=== PATIENT | female | born 1955 | race African-American/Black ===

== ENCOUNTER 2017-11-03 01:01 | Inpatient (IN) | payer MEDICAID ==
[~2017-11-03] VITALS: Ht 157.5 cm; Wt 30.4 kg
[2017-11-03] MEDS ORDERED: ALBUTEROL (0.083%) 2.5MG/3ML NEB HHN STA (02:39)
[2017-11-03] MEDS ORDERED: PREDNISONE 20MG TABLET PO STA (02:39)
[2017-11-03] MEDS ORDERED: IPRATROPIUM BROMIDE (0.02%) 0.5MG/2.5ML NEB HHN STA (02:39)
[2017-11-03 03:26] LABS: BASOPHILS % 0.2 % (0.0-2.0); EOSINOPHILS % 0.4 % (0.0-5.0); HEMATOCRIT. 23.9 % (36.0-48.0); HEMOGLOBIN. 7.8 g/dL (12.0-16.0); LYMPHOCYTES % 10.6 % (20.0-50.0); MEAN CORPUSCULAR HEMOGLOBIN 27.1 pg (28.0-32.0); MEAN CORPUSCULAR VOLUME 83.1 fL (81.0-99.0); MEAN PLATELET VOLUME 8.2 fl (7.4-10.4); NEUTROPHILS % 84.8 % (40.0-76.0); PLATELET 534 x1000/uL (130-400); RED BLOOD CELL COUNT 2.87 mill/uL (4.2-5.4)
[2017-11-03 03:30] LABS: CHLORIDE 99 mEq/L (98-107)
[2017-11-03 04:00] VITALS: BP 136/72
[2017-11-03] MEDS ORDERED: MORPHINE SULFATE 4 MG/ML CPJ (NOT FOR IM USE) IV ONE (04:15)
[2017-11-03] MEDS ORDERED: KETOROLAC 30MG/ML VIAL IV ONE (04:30)
[2017-11-03] MEDS ORDERED: METF1000 PO (05:18)
[2017-11-03] MEDS ORDERED: VENL75CA55 PO (05:18)
[2017-11-03] MEDS ORDERED: QUET300T19 PO (05:18)
[2017-11-03] MEDS ORDERED: GLIP5TAB12 PO (05:18)
[2017-11-03] MEDS ORDERED: NIFE90TA34 PO (05:18)
[2017-11-03] MEDS ORDERED: TRIH5TAB2 PO (05:18)
[2017-11-03] MEDS ORDERED: ATOR40TA70 PO (05:18)
[2017-11-03] MEDS ORDERED: LISI40TA4 PO (05:18)
[2017-11-03] MEDS ORDERED: FLUP10TA2 PO (05:18)
[2017-11-03] MEDS ORDERED: VENL150C2 PO (05:18)
[2017-11-03] MEDS ORDERED: DOCU100T PO (05:18)
[2017-11-03 05:56] VITALS: BP 136/72
[2017-11-03] MEDS ORDERED: DIPHENHYDRAMINE 50MG/ML VIAL IV PRN (07:45)
[2017-11-03] MEDS ORDERED: ACETAMINOPHEN 325MG TABLET PO PRN (07:45)
[2017-11-03] MEDS ORDERED: CLONIDINE 0.1MG TABLET PO PRN (07:45)
[2017-11-03] MEDS ORDERED: MAGNESIUM/ALUMINUM HYDROXIDE/SIMETHICONE 30ML UDC PO PRN (07:45)
[2017-11-03] MEDS ORDERED: KETOROLAC 30MG/ML VIAL IV PRN (07:45)
[2017-11-03] MEDS ORDERED: DOCUSATE SODIUM 100MG CAPSULE PO PRN (07:45)
[2017-11-03] MEDS ORDERED: ZOLPIDEM TARTRATE 5MG TABLET PO PRN (07:45)
[2017-11-03] MEDS ORDERED: ONDANSETRON HCL 4MG/2ML VIAL IV PRN (07:45)
[2017-11-03] MEDS ORDERED: NA PHOS,M-B/NA PHOS,DI-BA ENEMA 118ML PR PRN (07:45)
[2017-11-03] MEDS ORDERED: NITROGLYCERIN 0.4MG TABLET SL SL PRN (07:45)
[2017-11-03] MEDS ORDERED: LORAZEPAM 0.5MG TABLET PO PRN (07:45)
[2017-11-03] MEDS ORDERED: IPRATROPIUM/ALBUTEROL 0.5-3(2.5)MG/3ML NEB INH PRN (07:45)
[2017-11-03] MEDS ORDERED: GUAIFENESIN 200MG/10ML SUGAR FREE UDC PO PRN (07:45)
[2017-11-03] MEDS ORDERED: DEXTROSE 50% WATER 50ML SYRINGE IV PRN (08:15)
[2017-11-03 08:21] LABS: TOTAL IRON BINDING CAPACITY 153 ug/dL (250-450)
[2017-11-03] MEDS: FAMOTIDINE 20MG TABLET PO SCH (09:12)
[2017-11-03] MEDS: BLOOD SUGAR DIAGNOSTIC STRIP TEST SCH ×4 (09:12→21:35)
[2017-11-03] MEDS: GUAIFENESIN 600MG ER TABLET PO SCH ×3 (09:12→21:49)
[2017-11-03] MEDS: INSULIN LISPRO 100 UNITS/ML SUBCUT SCH ×4 (09:13→21:42)
[2017-11-03] MEDS: ENOXAPARIN 30MG/0.3ML SYR SUBCUT SCH (09:18)
[2017-11-03] MEDS ORDERED: LEVOFLOXACIN 750MG PREMIX 150 ML IV SCH (09:30)
[2017-11-03 09:55] LABS: FOLIC ACID (FOLATE) SERUM 17.6 ng/mL (>5.38)
[2017-11-03] MEDS ORDERED: QUETIAPINE FUMARATE 50MG TABLET PO SCH ×2 (11:00→21:00)
[2017-11-03] MEDS: INSULIN GLARGINE UD 100 UNITS/ML SYR SUBCUT SCH (11:55)
[2017-11-03] MEDS ORDERED: IOHEXOL-300 100 ML BOTTLE ONE (12:00)
[2017-11-03] MEDS ORDERED: BLOOD SUGAR DIAGNOSTIC STRIP TEST SCH (12:20)
[2017-11-03 12:29] VITALS: BP 144/79
[2017-11-03] MEDS ORDERED: INSULIN LISPRO 100 UNITS/ML SUBCUT SCH (12:50)
[2017-11-03] MEDS: VENLAFAXINE HCL 37.5MG SR CAPSULE 24HR PO SCH (13:13)
[2017-11-03 15:49] VITALS: BP 153/82
[2017-11-03] MEDS: BUDESONIDE 0.5MG/2ML NEB HHN SCH ×2 (16:31→19:49)
[2017-11-03] MEDS: NICOTINE 14MG PATCH TD SCH (17:54)
[2017-11-03] MEDS: IPRATROPIUM/ALBUTEROL 0.5-3(2.5)MG/3ML NEB HHN SCH (19:50)
[2017-11-03 20:00] VITALS: BP 165/86
[2017-11-03] MEDS ORDERED: ACETYLCYSTEINE 100MG/ML 10% VIAL 4ML INH SCH (22:00)
[2017-11-04] VITALS: BP 133/61
[2017-11-04] MEDS: IPRATROPIUM/ALBUTEROL 0.5-3(2.5)MG/3ML NEB HHN SCH ×2 (00:15→08:31)
[2017-11-04 04:00] VITALS: BP 162/97
[2017-11-04] MEDS: BLOOD SUGAR DIAGNOSTIC STRIP TEST SCH (06:57)
[2017-11-04 07:52] VITALS: BP 147/90
[2017-11-04] MEDS: INSULIN LISPRO 100 UNITS/ML SUBCUT SCH (08:09)
[2017-11-04] MEDS: FAMOTIDINE 20MG TABLET PO SCH (08:10)
[2017-11-04] MEDS: NICOTINE 14MG PATCH TD SCH (08:11)
[2017-11-04] MEDS: VENLAFAXINE HCL 37.5MG SR CAPSULE 24HR PO SCH (08:11)
[2017-11-04] MEDS: ENOXAPARIN 30MG/0.3ML SYR SUBCUT SCH (08:12)
[2017-11-04] MEDS: BUDESONIDE 0.5MG/2ML NEB HHN SCH (08:30)
[2017-11-04] MEDS ORDERED: ATORVASTATIN CALCIUM 40MG TABLET PO SCH ×2 (09:00→21:00)
[2017-11-04] MEDS: INSULIN GLARGINE UD 100 UNITS/ML SYR SUBCUT SCH (10:05)
[2017-11-04 11:10] VITALS: BP 113/58
[2017-11-04 12:11] VITALS: BP 157/84
[2017-11-05] MEDS ORDERED: LEVOFLOXACIN 500MG PREMIX 100 ML IV SCH (09:00)
== END 2017-11-04 12:00 | disposition home or self-care (01) | DRG 720 ==
LOC: ER 01:01 → 6WST 03:09 → ENRESERV 03:38
PROVIDERS: ADMIT Internal Medicine; ATTEND Internal Medicine
DX: A41.9 Sepsis, unspecified organism (principal); J96.00 Acute respiratory failure, unspecified whether with hypoxia or hypercapnia; E43 Unspecified severe protein-calorie malnutrition; J18.9 Pneumonia, unspecified organism; E11.22 Type 2 diabetes mellitus with diabetic chronic kidney disease; D64.9 Anemia, unspecified; F31.9 Bipolar disorder, unspecified; F20.9 Schizophrenia, unspecified; N18.9 Chronic kidney disease, unspecified; R91.8 Other nonspecific abnormal finding of lung field; I12.9 Hypertensive chronic kidney disease with stage 1 through stage 4 chronic kidney disease, or unspecified chronic kidney disease; E78.00 Pure hypercholesterolemia, unspecified; F17.210 Nicotine dependence, cigarettes, uncomplicated; Z79.899 Other long term (current) drug therapy; Z98.51 Tubal ligation status; Z71.6 Tobacco abuse counseling; Z68.1 Body mass index [BMI] 19.9 or less, adult
CPT/HCPCS: 36415; 71045; 71260; 80053; 82607; 82746; 82962; 83036; 83540; 83550; 83605; 85025; 87040; 87070; 93005; 93970; 99285; J1650; J1815; J1885; J1956; J2270; J7040; J7512; J7608; J7611; J7620; J7626; Q9967

== ENCOUNTER 2017-12-23 19:28 | Inpatient (IN) | payer MEDICAID ==
[~2017-12-23] VITALS: Ht 175.3 cm; Wt 93.9 kg
[~2017-12-23 19:28] MED LIST: ATOR40TA70 PO; DOCU100T PO; FLUP10TA2 PO; GLIP5TAB12 PO; LISI40TA4 PO; METF1000 PO; NIFE90TA34 PO; QUET300T19 PO; TRIH5TAB2 PO; VENL150C2 PO; VENL75CA55 PO
[2017-12-23] MEDS ORDERED: VANCOMYCIN 1 G PREMIX 200 ML IV STA (19:59)
[2017-12-23] MEDS ORDERED: CEFEPIME 1,000 MG in DEXTROSE 5% WATER 50 ML IV STA (19:59)
[2017-12-23] MEDS ORDERED: SODIUM CHLORIDE 0.9% 1000ML BAG (SEPSIS BOLUS) IV ONE (20:45)
[2017-12-23 20:56] LABS: HEMATOCRIT. 32.8 % (36.0-48.0); HEMOGLOBIN. 10.2 g/dL (12.0-16.0); MEAN CORPUSCULAR HEMOGLOBIN 26.9 pg (28.0-32.0); MEAN CORPUSCULAR VOLUME 86.7 fL (81.0-99.0); MEAN PLATELET VOLUME 9.2 fl (7.4-10.4); PLATELET 376 x1000/uL (130-400); RED BLOOD CELL COUNT 3.79 mill/uL (4.2-5.4); RED CELL DISTRIBUTION WIDTH 19.8 % (11.6-14.6)
[2017-12-23 21:01] LABS: CHLORIDE 94 mEq/L (98-107)
[2017-12-23 21:03] LABS: PROTHROMBIN TIME 10.1 sec (9.1-11.1)
[2017-12-23 21:19] LABS: BG BASE EXCESS -8.2 mmol/L (-2.0-2.0); BG BILEVEL POS AIRWAY PRESSURE 15/5; BG CARBOXYHEMOGLOBIN 1.3 % (0.5-1.5); BG DEOXYHEMOGLOBIN 6.7 % (0.0-5.0); BG FRACTION INSPIRED OXYGEN 100; BG HCO3 ACT 17.9 mmol/L (22.0-26.0); BG METHEMOGLOBIN 0.3 % (0.0-1.5); BG OXYGEN SATURATION 93.2 % (92.0-98.5); BG OXYHEMOGLOBIN 91.7 % (94.0-97.0); BG PCO2 39.2 mmHg (35.0-45.0); BG PH 7.278 (7.350-7.450); BG PO2 78.9 mmHg (75.0-100.0); BG SAMPLE SITE RIGHT BRACHIAL; BG TOTAL HEMOGLOBIN 10.6 g/dL (12.0-18.0); BG VENT MODE MASK - BIPAP; BG VENT RATE 16 set
[2017-12-23 21:31] LABS: PLATELET ESTIMATE NORMAL
[2017-12-23] MEDS ORDERED: DIPHENHYDRAMINE 50MG/ML VIAL IV ONE (22:15)
[2017-12-23] MEDS ORDERED: METOCLOPRAMIDE HCL 10MG/2ML VIAL IV ONE (22:15)
[2017-12-23] MEDS ORDERED: KETOROLAC 15MG/ML VIAL IV ONE (22:15)
[2017-12-24] VITALS (64 sets, daily range): BP systolic 81–126; BP diastolic 48–84
[2017-12-24] MEDS ORDERED: DEXTROSE 50% WATER 50ML SYRINGE IV PRN ×2
[2017-12-24 01:21] LABS: CLARITY URINE CLEAR (CLEAR); COLOR URINE YELLOW (YELLOW); KETONES URINE NEGATIVE (NEGATIVE); LEUKOCYTE ESTERASE URINE NEGATIVE (NEGATIVE); NITRITE URINE NEGATIVE (NEGATIVE); OCCULT BLOOD URINE NEGATIVE (NEGATIVE); PROTEIN URINE 1+ (NEGATIVE); SPECIFIC GRAVITY URINE 1.016 (1.005-1.030); UROBILINOGEN URINE 0.2 E.U./dL (0.2-1.0)
[2017-12-24] MEDS ORDERED: INSULIN REGULAR (DRIP) 100 UNITS in SODIUM CHLORIDE 0.9% 100 ML IV SCH (02:00)
[2017-12-24] MEDS ORDERED: ACETAMINOPHEN 650MG SUPP PR PRN (08:45)
[2017-12-24] MEDS ORDERED: SODIUM CHLORIDE 0.9% 250 ML IV ONE (09:08)
[2017-12-24] MEDS ORDERED: SODIUM CHLORIDE 0.9% 1,000 ML IV SCH (09:15)
[2017-12-24 09:16] LABS: BG BASE EXCESS -9.8 mmol/L (-2.0-2.0); BG BILEVEL POS AIRWAY PRESSURE 15/5; BG CARBOXYHEMOGLOBIN 0.3 % (0.5-1.5); BG DEOXYHEMOGLOBIN 5.4 % (0.0-5.0); BG FRACTION INSPIRED OXYGEN 100; BG HCO3 ACT 16.8 mmol/L (22.0-26.0); BG METHEMOGLOBIN 0.3 % (0.0-1.5); BG OXYGEN SATURATION 94.6 % (92.0-98.5); BG PCO2 39.2 mmHg (35.0-45.0); BG PH 7.249 (7.350-7.450); BG SAMPLE SITE RIGHT BRACHIAL; BG TOTAL HEMOGLOBIN 10.6 g/dL (12.0-18.0); BG VENT MODE MASK - BIPAP
[2017-12-24] MEDS: BLOOD SUGAR DIAGNOSTIC STRIP TEST SCH ×7 (09:46→18:21)
[2017-12-24 09:57] LABS: BG BASE EXCESS -10.9 mmol/L (-2.0-2.0); BG CARBOXYHEMOGLOBIN 0.1 % (0.5-1.5); BG DEOXYHEMOGLOBIN 6.7 % (0.0-5.0); BG HCO3 ACT 16.3 mmol/L (22.0-26.0); BG METHEMOGLOBIN 0.2 % (0.0-1.5); BG OXYGEN SATURATION 93.3 % (92.0-98.5); BG PCO2 41.5 mmHg (35.0-45.0); BG PH 7.212 (7.350-7.450); BG PO2 82.4 mmHg (75.0-100.0); BG SAMPLE SITE RIGHT BRACHIAL; BG TIDAL VOLUME(mL) 500 mL; BG TOTAL HEMOGLOBIN 10.6 g/dL (12.0-18.0); BG VENT MODE VENT - A/C; BG VENT RATE 16 set
[2017-12-24] MEDS: ONDANSETRON HCL 4MG/2ML INJ IV PRN (10:11)
[2017-12-24 10:23] LABS: HEMATOCRIT 30.4 % (36.0-48.0); HEMOGLOBIN 9.4 g/dL (12.0-16.0); MEAN CORPUSCULAR HEMOGLOBIN 26.4 pg (28.0-32.0); MEAN CORPUSCULAR VOLUME 85.1 fL (81.0-99.0); PLATELET 332 x1000/uL (130-400); RED BLOOD CELL COUNT 3.57 mill/uL (4.2-5.4); RED CELL DISTRIBUTION WIDTH 19.7 % (11.6-14.6)
[2017-12-24 10:33] LABS: CHLORIDE 108 mEq/L (98-107)
[2017-12-24 10:42] LABS: BETA HYDROXYBUTYRATE 0.1 mMol/L (0.0-0.3)
[2017-12-24] MEDS: PROPOFOL 10MG/ML 100ML 100 ML IV PRN ×2 (11:41→14:53)
[2017-12-24] MEDS: NOREPINEPHRINE 16 MG in DEXT 5% WATER 234 ML IV PRN (11:42)
[2017-12-24] MEDS: CEFEPIME 2,000 MG in DEXT 5% WATER 100 ML IV SCH (12:25)
[2017-12-24] MEDS: IPRATROPIUM/ALBUTEROL 0.5-3(2.5)MG/3ML NEB HHN SCH ×4 (12:44→23:57)
[2017-12-24] MEDS: ACETYLCYSTEINE 100MG/ML 10% VIAL 4ML INH SCH ×2 (12:45→23:57)
[2017-12-24] MEDS ORDERED: FLUCONAZOLE 400MG/200ML BAG 200 ML IV NR (13:00)
[2017-12-24 13:09] LABS: PHOSPHORUS 3.9 mg/dL (2.5-4.9)
[2017-12-24 13:11] LABS: *AMPHETAMINES SCREEN URINE NEGATIVE (NEGATIVE); *BARBITURATES SCREEN URINE NEGATIVE (NEGATIVE); *BENZODIAZEPINES SCREEN URINE NEGATIVE (NEGATIVE); *COCAINE SCREEN URINE NEGATIVE (NEGATIVE)
[2017-12-24 13:12] LABS: CANNABINOID URINE SCREEN NEGATIVE (NEGATIVE); METHADONE URINE SCREEN NEGATIVE (NEGATIVE); PHENCYCLIDINE URINE SCREEN NEGATIVE (NEGATIVE)
[2017-12-24 13:14] LABS: OPIATES URINE SCREEN NEGATIVE (NEGATIVE)
[2017-12-24] MEDS ORDERED: MAGNESIUM SULFATE 3 GM in DEXT 5% WATER 96 ML IV NR ×2 (14:30→17:00)
[2017-12-24] MEDS: METRONIDAZOLE 500 MG PREMIX 100 ML IV SCH ×2 (14:30→21:20)
[2017-12-24] MEDS ORDERED: ETOMIDATE 2MG/ML 10ML VIAL IV ONE (14:32)
[2017-12-24] MEDS ORDERED: VECURONIUM BROMIDE 10 MG/VIAL IV ONE (14:32)
[2017-12-24] MEDS ORDERED: INSULIN REGULAR (DRIP) 100 UNITS in SODIUM CHLORIDE 0.9% 99 ML IV PRN (16:15)
[2017-12-24] MEDS: DEXT 5%/0.45% NACL 1000ML 1,000 ML IV SCH (16:55)
[2017-12-24] MEDS: DOXYCYCLINE 100 MG in DEXT 5% WATER 100 ML IV SCH (17:10)
[2017-12-24] MEDS: INSULIN REGULAR (DRIP) 100 UNITS in SODIUM CHLORIDE 0.9% 99 ML IV SCH (17:13)
[2017-12-24] MEDS ORDERED: VORICONAZOLE 50MG TABLET PO NR (18:00)
[2017-12-24] MEDS ORDERED: VANCOMYCIN 1250MG in DEXTROSE 5% WATER 250ML IV NR (18:30)
[2017-12-24 20:20] LABS: CHLORIDE 110 mEq/L (98-107)
[2017-12-24 20:26] LABS: PHOSPHORUS 2.7 mg/dL (2.5-4.9)
[2017-12-24] MEDS ORDERED: VENLAFAXINE HCL 100MG TABLET PO SCH (21:00)
[2017-12-24] MEDS ORDERED: FLUPHENAZINE HCL 5 MG TABLET NG SCH (21:00)
[2017-12-24] MEDS: QUETIAPINE FUMARATE 100MG TABLET PO SCH (21:19)
[2017-12-24] MEDS: VENLAFAXINE HCL 50MG TABLET PO SCH (21:57)
[2017-12-24] MEDS: TRIHEXYPHENIDYL HCL 5 MG TABLET NG SCH (22:59)
[2017-12-25] VITALS (105 sets, daily range): BP systolic 65–125; BP diastolic 39–78
[2017-12-25 02:06] LABS: CHLORIDE 108 mEq/L (98-107)
[2017-12-25 02:13] LABS: PHOSPHORUS 2.6 mg/dL (2.5-4.9)
[2017-12-25] MEDS: BLOOD SUGAR DIAGNOSTIC STRIP TEST SCH ×10 (02:59→18:00)
[2017-12-25] MEDS: IPRATROPIUM/ALBUTEROL 0.5-3(2.5)MG/3ML NEB HHN SCH ×5 (04:19→20:17)
[2017-12-25] MEDS: DOXYCYCLINE 100 MG in DEXT 5% WATER 100 ML IV SCH ×2 (05:31→18:06)
[2017-12-25] MEDS: DEXT 5%/0.45% NACL 1000ML 1,000 ML IV SCH (05:32)
[2017-12-25] MEDS: PROPOFOL 10MG/ML 100ML 100 ML IV PRN ×5 (05:32→21:54)
[2017-12-25] MEDS: METRONIDAZOLE 500 MG PREMIX 100 ML IV SCH ×3 (05:41→21:40)
[2017-12-25 06:03] LABS: BASOPHILS % 0.3 % (0.0-2.0); EOSINOPHILS % 0.2 % (0.0-5.0); HEMATOCRIT. 25.8 % (36.0-48.0); HEMOGLOBIN. 8.2 g/dL (12.0-16.0); LYMPHOCYTES % 7.8 % (20.0-50.0); MEAN CORPUSCULAR HEMOGLOBIN 26.8 pg (28.0-32.0); MEAN CORPUSCULAR VOLUME 84.1 fL (81.0-99.0); MEAN PLATELET VOLUME 8.4 fl (7.4-10.4); MONOCYTES % 2.9 % (2.0-8.0); NEUTROPHILS % 88.8 % (40.0-76.0); PLATELET 277 x1000/uL (130-400); RED BLOOD CELL COUNT 3.06 mill/uL (4.2-5.4); RED CELL DISTRIBUTION WIDTH 19.6 % (11.6-14.6)
[2017-12-25 06:30] LABS: CHLORIDE 110 mEq/L (98-107)
[2017-12-25 06:50] LABS: PHOSPHORUS 2.8 mg/dL (2.5-4.9)
[2017-12-25 06:51] LABS: LDL CHOLESTEROL 54 mg/dL (5-100)
[2017-12-25 06:53] LABS: HDL CHOLESTEROL 34 mg/dL (40-59)
[2017-12-25 06:55] LABS: CREATINE KINASE MB FRACTION < 1.0 ng/mL (0.5-3.6)
[2017-12-25 06:56] LABS: CREATINE KINASE 22 IU/L (26-192); T4 FREE 1.13 ng/dL (0.76-1.46)
[2017-12-25 08:52] LABS: BG BASE EXCESS -9.7 mmol/L (-2.0-2.0); BG CARBOXYHEMOGLOBIN 0.7 % (0.5-1.5); BG DEOXYHEMOGLOBIN 10.5 % (0.0-5.0); BG FRACTION INSPIRED OXYGEN 80; BG METHEMOGLOBIN 0.4 % (0.0-1.5); BG OXYGEN SATURATION 89.4 % (92.0-98.5); BG OXYHEMOGLOBIN 88.4 % (94.0-97.0); BG PCO2 34.5 mmHg (35.0-45.0); BG PH 7.285 (7.350-7.450); BG PO2 63.1 mmHg (75.0-100.0); BG SAMPLE SITE RIGHT RADIAL; BG TIDAL VOLUME(mL) 500 mL; BG TOTAL HEMOGLOBIN 9.4 g/dL (12.0-18.0); BG VENT MODE VENT - A/C; BG VENT RATE 20 set
[2017-12-25] MEDS: PANTOPRAZOLE SODIUM 40 MG/VIAL IV SCH (09:10)
[2017-12-25] MEDS: VORICONAZOLE 200MG TABLET PO SCH ×2 (09:11→21:40)
[2017-12-25] MEDS: VENLAFAXINE HCL 50MG TABLET PO SCH ×2 (09:11→18:05)
[2017-12-25] MEDS: TRIHEXYPHENIDYL HCL 5 MG TABLET NG SCH ×2 (09:11→21:40)
[2017-12-25] MEDS ORDERED: POTASSIUM CHLORIDE 20MEQ/PACKET PO SCH (09:45)
[2017-12-25] MEDS: ACETAMINOPHEN 325MG TABLET PO PRN (09:54)
[2017-12-25] MEDS ORDERED: FENTANYL CITRATE/PF 1,000 MCG in SODIUM CHLORIDE 0.9% 100 ML IV PRN (10:00)
[2017-12-25] MEDS ORDERED: FENTANYL CITRATE/PF 1,000 MCG in SODIUM CHLORIDE 0.9% 80 ML IV PRN (10:00)
[2017-12-25] MEDS: FENTANYL CITRATE/PF 1,000 MCG in SODIUM CHLORIDE 0.9% 100 ML IV PRN ×2 (10:23→17:47)
[2017-12-25] MEDS: PHENYLEPHRINE 40 MG in DEXT 5% WATER 246 ML IV PRN ×4 (11:12→23:21)
[2017-12-25] MEDS ORDERED: DEXT IV SCH (11:15)
[2017-12-25] MEDS ORDERED: NACL IV SCH (11:15)
[2017-12-25] MEDS ORDERED: SODIUM BICARBONATE IV SCH (11:15)
[2017-12-25] MEDS: FLUPHENAZINE HCL 10 MG TABLET NG SCH ×2 (11:51→21:40)
[2017-12-25] MEDS: CEFEPIME 2,000 MG in DEXT 5% WATER 100 ML IV SCH (11:51)
[2017-12-25] MEDS ORDERED: KCL 20MEQ/100ML PREMIX 100 ML IV NR (13:00)
[2017-12-25] MEDS ORDERED: FLUCONAZOLE 200 MG/100ML BAG 100 ML IV SCH (13:00)
[2017-12-25] MEDS: SODIUM BICARBONATE 50 MEQ in DEXT 5%/0.2% NACL 1,000 ML IV SCH (13:17)
[2017-12-25 13:43] LABS: CHLORIDE 113 mEq/L (98-107)
[2017-12-25 13:50] LABS: PHOSPHORUS 3.5 mg/dL (2.5-4.9)
[2017-12-25] MEDS: VANCOMYCIN 1 G PREMIX 200 ML IV SCH (16:11)
[2017-12-25] MEDS ORDERED: VANCOMYCIN 1250MG in DEXTROSE 5% WATER 250ML IV SCH (18:00)
[2017-12-25] MEDS: QUETIAPINE FUMARATE 100MG TABLET PO SCH (21:40)
[2017-12-26] VITALS (60 sets, daily range): BP systolic 66–181; BP diastolic 41–101
[2017-12-26] MEDS: ACETYLCYSTEINE 100MG/ML 10% VIAL 4ML INH SCH ×4 (00:02→23:41)
[2017-12-26] MEDS: IPRATROPIUM/ALBUTEROL 0.5-3(2.5)MG/3ML NEB HHN SCH ×7 (00:02→23:41)
[2017-12-26] MEDS: BLOOD SUGAR DIAGNOSTIC STRIP TEST SCH ×10 (00:29→18:02)
[2017-12-26] MEDS: PHENYLEPHRINE 40 MG in DEXT 5% WATER 246 ML IV PRN ×2 (03:05→21:25)
[2017-12-26] MEDS: FENTANYL CITRATE/PF 1,000 MCG in SODIUM CHLORIDE 0.9% 80 ML IV PRN (04:14)
[2017-12-26] MEDS: DOXYCYCLINE 100 MG in DEXT 5% WATER 100 ML IV SCH ×2 (05:17→19:14)
[2017-12-26] MEDS: NOREPINEPHRINE 16 MG in DEXT 5% WATER 234 ML IV PRN ×2 (05:29→07:00)
[2017-12-26 06:24] LABS: BASOPHILS % 0.3 % (0.0-2.0); EOSINOPHILS % 1.2 % (0.0-5.0); HEMATOCRIT. 28.5 % (36.0-48.0); HEMOGLOBIN. 8.9 g/dL (12.0-16.0); MEAN CORPUSCULAR HEMOGLOBIN 26.6 pg (28.0-32.0); MEAN CORPUSCULAR VOLUME 85.3 fL (81.0-99.0); MONOCYTES % 3.8 % (2.0-8.0); NEUTROPHILS % 83.7 % (40.0-76.0); PLATELET 286 x1000/uL (130-400); RED BLOOD CELL COUNT 3.34 mill/uL (4.2-5.4); RED CELL DISTRIBUTION WIDTH 20.3 % (11.6-14.6)
[2017-12-26 06:45] LABS: CHLORIDE 111 mEq/L (98-107)
[2017-12-26 06:53] LABS: PHOSPHORUS 3.3 mg/dL (2.5-4.9)
[2017-12-26] MEDS: SODIUM BICARBONATE 50 MEQ in DEXT 5%/0.2% NACL 1,000 ML IV SCH (06:53)
[2017-12-26] MEDS: METRONIDAZOLE 500 MG PREMIX 100 ML IV SCH ×3 (06:53→21:59)
[2017-12-26 08:15] LABS: HIV SCREEN 4G Non Reactive (Non Reactive)
[2017-12-26 08:28] LABS: BG BASE EXCESS -10.8 mmol/L (-2.0-2.0); BG CARBOXYHEMOGLOBIN 0.2 % (0.5-1.5); BG DEOXYHEMOGLOBIN 3.8 % (0.0-5.0); BG FRACTION INSPIRED OXYGEN 90; BG HCO3 ACT 16.4 mmol/L (22.0-26.0); BG METHEMOGLOBIN 0.4 % (0.0-1.5); BG OXYGEN SATURATION 96.2 % (92.0-98.5); BG OXYHEMOGLOBIN 95.6 % (94.0-97.0); BG PCO2 42.1 mmHg (35.0-45.0); BG PH 7.209 (7.350-7.450); BG PO2 95.5 mmHg (75.0-100.0); BG SAMPLE SITE RIGHT RADIAL; BG TIDAL VOLUME(mL) 500 mL; BG TOTAL HEMOGLOBIN 10.4 g/dL (12.0-18.0); BG VENT MODE VENT - A/C; BG VENT RATE 24 set
[2017-12-26] MEDS ORDERED: SODIUM BICARBONATE 5MEQ SYR 100 MEQ in DEXTROSE 5% WATER 1,000 ML IV SCH (09:30)
[2017-12-26] MEDS: VORICONAZOLE 200MG TABLET PO SCH ×2 (09:49→20:56)
[2017-12-26] MEDS: TRIHEXYPHENIDYL HCL 5 MG TABLET NG SCH ×2 (09:49→20:54)
[2017-12-26] MEDS: PANTOPRAZOLE SODIUM 40 MG/VIAL IV SCH (09:49)
[2017-12-26] MEDS: VENLAFAXINE HCL 50MG TABLET PO SCH ×2 (09:49→19:14)
[2017-12-26] MEDS: VANCOMYCIN 1 G PREMIX 200 ML IV SCH (09:49)
[2017-12-26] MEDS: FLUPHENAZINE HCL 10 MG TABLET NG SCH ×2 (09:49→20:56)
[2017-12-26] MEDS: SODIUM BICARBONATE 100 MEQ in DEXTROSE 5% WATER 1,000 ML IV SCH (11:44)
[2017-12-26] MEDS: CEFEPIME 2,000 MG in DEXT 5% WATER 100 ML IV SCH (12:53)
[2017-12-26] MEDS: QUETIAPINE FUMARATE 100MG TABLET PO SCH (20:56)
[2017-12-27] VITALS (83 sets, daily range): BP systolic 68–134; BP diastolic 35–90
[2017-12-27] MEDS: BLOOD SUGAR DIAGNOSTIC STRIP TEST SCH ×10 (00:31→18:27)
[2017-12-27] MEDS: INSULIN REGULAR (DRIP) 100 UNITS in SODIUM CHLORIDE 0.9% 99 ML IV SCH (01:08)
[2017-12-27] MEDS: PHENYLEPHRINE 40 MG in DEXT 5% WATER 246 ML IV PRN ×4 (02:12→20:10)
[2017-12-27] MEDS: SODIUM BICARBONATE 100 MEQ in DEXTROSE 5% WATER 1,000 ML IV SCH (03:17)
[2017-12-27] MEDS: IPRATROPIUM/ALBUTEROL 0.5-3(2.5)MG/3ML NEB HHN SCH ×5 (03:42→21:14)
[2017-12-27] MEDS: VANCOMYCIN 1 G PREMIX 200 ML IV SCH (04:56)
[2017-12-27] MEDS: DOXYCYCLINE 100 MG in DEXT 5% WATER 100 ML IV SCH ×2 (05:38→18:35)
[2017-12-27] MEDS: METRONIDAZOLE 500 MG PREMIX 100 ML IV SCH ×3 (05:47→21:04)
[2017-12-27 06:09] LABS: BASOPHILS % 0.4 % (0.0-2.0); EOSINOPHILS % 0.7 % (0.0-5.0); HEMATOCRIT. 23.9 % (36.0-48.0); HEMOGLOBIN. 7.5 g/dL (12.0-16.0); LYMPHOCYTES % 8.4 % (20.0-50.0); MEAN CORPUSCULAR HEMOGLOBIN 26.7 pg (28.0-32.0); MEAN CORPUSCULAR VOLUME 84.9 fL (81.0-99.0); NEUTROPHILS % 87.5 % (40.0-76.0); PLATELET 232 x1000/uL (130-400); RED BLOOD CELL COUNT 2.82 mill/uL (4.2-5.4); RED CELL DISTRIBUTION WIDTH 19.9 % (11.6-14.6)
[2017-12-27 06:16] LABS: CHLORIDE 114 mEq/L (98-107)
[2017-12-27 06:22] LABS: PHOSPHORUS 3.9 mg/dL (2.5-4.9)
[2017-12-27 07:37] LABS: BG BASE EXCESS -8.8 mmol/L (-2.0-2.0); BG DEOXYHEMOGLOBIN 4.6 % (0.0-5.0); BG OXYGEN SATURATION 95.4 % (92.0-98.5); BG OXYHEMOGLOBIN 94.4 % (94.0-97.0); BG PCO2 36.1 mmHg (35.0-45.0); BG PO2 82.9 mmHg (75.0-100.0); BG SAMPLE SITE RIGHT RADIAL; BG TIDAL VOLUME(mL) 500 mL; BG TOTAL HEMOGLOBIN 8.8 g/dL (12.0-18.0); BG VENT MODE VENT - A/C; BG VENT RATE 28 set
[2017-12-27] MEDS: PANTOPRAZOLE SODIUM 40 MG/VIAL IV SCH (08:56)
[2017-12-27] MEDS: VENLAFAXINE HCL 50MG TABLET PO SCH ×2 (08:56→18:35)
[2017-12-27] MEDS: TRIHEXYPHENIDYL HCL 5 MG TABLET NG SCH ×2 (08:56→20:56)
[2017-12-27] MEDS: VORICONAZOLE 200MG TABLET PO SCH ×2 (08:56→20:57)
[2017-12-27] MEDS: FLUPHENAZINE HCL 10 MG TABLET NG SCH ×2 (08:57→20:56)
[2017-12-27] MEDS: ACETYLCYSTEINE 100MG/ML 10% VIAL 4ML INH SCH (09:19)
[2017-12-27] MEDS ORDERED: ALBUMIN HUMAN 25GM/100ML (25%) IV NR (11:00)
[2017-12-27] MEDS ORDERED: MAGNESIUM 2 G PREMIX 50 ML IV ONE (11:00)
[2017-12-27] MEDS: PROPOFOL 10MG/ML 100ML 100 ML IV PRN ×3 (11:43→23:26)
[2017-12-27] MEDS: CEFEPIME 2,000 MG in DEXT 5% WATER 100 ML IV SCH (12:59)
[2017-12-27] MEDS ORDERED: MAGNESIUM SULFATE 2 GM in DEXTROSE 5% WATER 50 ML IV NR (13:00)
[2017-12-27] MEDS ORDERED: EPINEPHRINE 0.1MG/ML (1:10,000) 10ML SYR ONE (13:17)
[2017-12-27] MEDS: FENTANYL CITRATE/PF 1,000 MCG in SODIUM CHLORIDE 0.9% 80 ML IV PRN (14:52)
[2017-12-27] MEDS: SODIUM BICARBONATE 150 MEQ in DEXTROSE 5% WATER 1,000 ML IV SCH (14:53)
[2017-12-27 17:07] LABS: QFT MITOGEN VALUE 0.32 IU/mL (.); QFT TB GOLD PLUS Indeterminate (Negative); QFT TB1 AG VALUE 0.01 IU/mL (.)
[2017-12-27] MEDS: NOREPINEPHRINE 16 MG in DEXT 5% WATER 234 ML IV PRN (20:11)
[2017-12-27] MEDS: QUETIAPINE FUMARATE 100MG TABLET PO SCH (20:58)
[2017-12-28] VITALS (80 sets, daily range): BP systolic 74–139; BP diastolic 39–80
[2017-12-28] MEDS: BLOOD SUGAR DIAGNOSTIC STRIP TEST SCH ×10 (00:16→18:01)
[2017-12-28] MEDS: PHENYLEPHRINE 40 MG in DEXT 5% WATER 246 ML IV PRN ×5 (00:23→20:32)
[2017-12-28] MEDS: IPRATROPIUM/ALBUTEROL 0.5-3(2.5)MG/3ML NEB HHN SCH ×6 (00:54→20:30)
[2017-12-28] MEDS: ACETYLCYSTEINE 100MG/ML 10% VIAL 4ML INH SCH ×3 (00:55→16:20)
[2017-12-28] MEDS: FENTANYL CITRATE/PF 1,000 MCG in SODIUM CHLORIDE 0.9% 80 ML IV PRN ×2 (02:37→18:23)
[2017-12-28] MEDS: PROPOFOL 10MG/ML 100ML 100 ML IV PRN ×2 (03:23→10:24)
[2017-12-28] MEDS: SODIUM BICARBONATE 150 MEQ in DEXTROSE 5% WATER 1,000 ML IV SCH ×2 (05:05→20:31)
[2017-12-28] MEDS: METRONIDAZOLE 500 MG PREMIX 100 ML IV SCH ×3 (05:06→22:00)
[2017-12-28] MEDS: DOXYCYCLINE 100 MG in DEXT 5% WATER 100 ML IV SCH ×2 (05:24→18:21)
[2017-12-28 06:37] LABS: HEMATOCRIT. 23.1 % (36.0-48.0); HEMOGLOBIN. 7.2 g/dL (12.0-16.0); MEAN CORPUSCULAR HEMOGLOBIN 26.7 pg (28.0-32.0); MEAN CORPUSCULAR VOLUME 85.7 fL (81.0-99.0); MEAN PLATELET VOLUME 8.3 fl (7.4-10.4); PLATELET 210 x1000/uL (130-400); RED CELL DISTRIBUTION WIDTH 20.6 % (11.6-14.6)
[2017-12-28 06:52] LABS: PHOSPHORUS 4.2 mg/dL (2.5-4.9)
[2017-12-28 08:53] LABS: BG BASE EXCESS -3.7 mmol/L (-2.0-2.0); BG CARBOXYHEMOGLOBIN 1.2 % (0.5-1.5); BG DEOXYHEMOGLOBIN 0.5 % (0.0-5.0); BG FRACTION INSPIRED OXYGEN 100; BG HCO3 ACT 22.5 mmol/L (22.0-26.0); BG METHEMOGLOBIN 0.6 % (0.0-1.5); BG OXYGEN SATURATION 99.5 % (92.0-98.5); BG OXYHEMOGLOBIN 97.7 % (94.0-97.0); BG PCO2 46.9 mmHg (35.0-45.0); BG PH 7.299 (7.350-7.450); BG PO2 240.2 mmHg (75.0-100.0); BG SAMPLE SITE RIGHT RADIAL; BG TIDAL VOLUME(mL) 500 mL; BG TOTAL HEMOGLOBIN 7.4 g/dL (12.0-18.0); BG VENT MODE VENT - A/C; BG VENT RATE 28 set
[2017-12-28] MEDS: VENLAFAXINE HCL 50MG TABLET PO SCH ×2 (09:27→18:21)
[2017-12-28] MEDS: TRIHEXYPHENIDYL HCL 5 MG TABLET NG SCH ×2 (09:27→20:33)
[2017-12-28] MEDS: VORICONAZOLE 200MG TABLET PO SCH ×2 (09:27→20:33)
[2017-12-28] MEDS: PANTOPRAZOLE SODIUM 40 MG/VIAL IV SCH (09:28)
[2017-12-28] MEDS: FLUPHENAZINE HCL 10 MG TABLET NG SCH ×2 (09:28→20:33)
[2017-12-28] MEDS ORDERED: KCL 20MEQ/100ML PREMIX 100 ML IV NR (09:30)
[2017-12-28 10:06] LABS: PLATELET ESTIMATE NORMAL
[2017-12-28] MEDS: CEFEPIME 2,000 MG in DEXT 5% WATER 100 ML IV SCH (13:13)
[2017-12-28] MEDS: ACETAMINOPHEN 650MG/20.3ML UDC GT PRN ×2 (13:37→20:31)
[2017-12-28] MEDS ORDERED: PROPOFOL 10MG/ML 100ML 100 ML IV PRN ×3 (13:42→23:30)
[2017-12-28] MEDS: INSULIN REGULAR (DRIP) 100 UNITS in SODIUM CHLORIDE 0.9% 99 ML IV SCH (16:10)
[2017-12-28] MEDS: VANCOMYCIN 1250MG in DEXTROSE 5% WATER 250ML IV SCH (20:32)
[2017-12-28] MEDS: QUETIAPINE FUMARATE 100MG TABLET PO SCH (20:33)
[2017-12-28] MEDS ORDERED: PHENYLEPHRINE 80 MG in DEXT 5% WATER 500 ML IV PRN (22:45)
[2017-12-29] VITALS (107 sets, daily range): BP systolic 63–144; BP diastolic 34–104
[2017-12-29] MEDS: ACETYLCYSTEINE 100MG/ML 10% VIAL 4ML INH SCH ×2 (00:02→08:09)
[2017-12-29] MEDS: IPRATROPIUM/ALBUTEROL 0.5-3(2.5)MG/3ML NEB HHN SCH ×6 (00:02→20:41)
[2017-12-29] MEDS: PROPOFOL 10MG/ML 100ML 100 ML IV PRN ×6 (00:05→23:58)
[2017-12-29] MEDS: BLOOD SUGAR DIAGNOSTIC STRIP TEST SCH ×10 (00:27→18:55)
[2017-12-29] MEDS: PHENYLEPHRINE 80 MG in DEXT 5% WATER 492 ML IV PRN ×2 (00:46→10:38)
[2017-12-29] MEDS: NOREPINEPHRINE 16 MG in DEXT 5% WATER 234 ML IV PRN ×2 (00:47→10:38)
[2017-12-29] MEDS: FENTANYL CITRATE/PF 1,000 MCG in SODIUM CHLORIDE 0.9% 80 ML IV PRN ×3 (03:10→23:02)
[2017-12-29] MEDS: ACETAMINOPHEN 650MG/20.3ML UDC GT PRN ×2 (03:31→21:13)
[2017-12-29] MEDS: DOXYCYCLINE 100 MG in DEXT 5% WATER 100 ML IV SCH ×2 (05:49→17:20)
[2017-12-29] MEDS: METRONIDAZOLE 500 MG PREMIX 100 ML IV SCH ×3 (05:50→21:02)
[2017-12-29 06:50] LABS: BASOPHILS % 0.5 % (0.0-2.0); EOSINOPHILS % 1.7 % (0.0-5.0); HEMATOCRIT. 22.7 % (36.0-48.0); HEMOGLOBIN. 7.1 g/dL (12.0-16.0); LYMPHOCYTES % 8.5 % (20.0-50.0); MEAN CORPUSCULAR HEMOGLOBIN 26.9 pg (28.0-32.0); MEAN CORPUSCULAR VOLUME 85.3 fL (81.0-99.0); MEAN PLATELET VOLUME 8.1 fl (7.4-10.4); MONOCYTES % 2.7 % (2.0-8.0); NEUTROPHILS % 86.6 % (40.0-76.0); PLATELET 164 x1000/uL (130-400); RED BLOOD CELL COUNT 2.66 mill/uL (4.2-5.4); RED CELL DISTRIBUTION WIDTH 20.7 % (11.6-14.6)
[2017-12-29 06:57] LABS: PHOSPHORUS 3.9 mg/dL (2.5-4.9)
[2017-12-29 07:36] LABS: BG BASE EXCESS -1.2 mmol/L (-2.0-2.0); BG CARBOXYHEMOGLOBIN 0.8 % (0.5-1.5); BG DEOXYHEMOGLOBIN 0.7 % (0.0-5.0); BG FRACTION INSPIRED OXYGEN 100; BG HCO3 ACT 25.5 mmol/L (22.0-26.0); BG METHEMOGLOBIN 0.3 % (0.0-1.5); BG OXYGEN SATURATION 99.3 % (92.0-98.5); BG OXYHEMOGLOBIN 98.2 % (94.0-97.0); BG PCO2 53.1 mmHg (35.0-45.0); BG PO2 250.7 mmHg (75.0-100.0); BG SAMPLE SITE RIGHT BRACHIAL; BG TIDAL VOLUME(mL) 500 mL; BG TOTAL HEMOGLOBIN 9.3 g/dL (12.0-18.0); BG VENT MODE VENT - A/C; BG VENT RATE 28 set
[2017-12-29] MEDS: KCL 20MEQ/100ML PREMIX 100 ML IV SCH ×4 (08:51→14:12)
[2017-12-29] MEDS: FLUPHENAZINE HCL 10 MG TABLET NG SCH ×2 (08:52→22:00)
[2017-12-29] MEDS: PANTOPRAZOLE SODIUM 40 MG/VIAL IV SCH (08:52)
[2017-12-29] MEDS: METOCLOPRAMIDE HCL 10MG/2ML VIAL IV SCH ×3 (08:53→17:21)
[2017-12-29] MEDS: VORICONAZOLE 200MG TABLET PO SCH ×2 (08:53→21:06)
[2017-12-29] MEDS: TRIHEXYPHENIDYL HCL 5 MG TABLET NG SCH ×2 (08:53→21:07)
[2017-12-29] MEDS: VENLAFAXINE HCL 50MG TABLET PO SCH ×2 (08:54→17:21)
[2017-12-29] MEDS ORDERED: MAGNESIUM 1 G PREMIX 100 ML IV SCH (10:30)
[2017-12-29] MEDS ORDERED: LIDOCAINE HCL 1% 10 MG/ML 10ML VIAL ONE (12:54)
[2017-12-29] MEDS: DOCUSATE SODIUM SUGAR FREE 100MG/10ML UDC NG SCH (13:12)
[2017-12-29] MEDS: SODIUM BICARBONATE 150 MEQ in DEXTROSE 5% WATER 1,000 ML IV SCH (13:18)
[2017-12-29] MEDS: CEFEPIME 2,000 MG in DEXT 5% WATER 100 ML IV SCH (13:18)
[2017-12-29] MEDS ORDERED: ACETYLCYSTEINE 100MG/ML 10% VIAL 4ML INH SCH (14:00)
[2017-12-29] MEDS: VASOPRESSIN 10 UNIT in SODIUM CHLORIDE 0.9% 99.5 ML IV PRN ×2 (14:10→22:01)
[2017-12-29] MEDS: ACETAMINOPHEN 325MG TABLET PO PRN (14:26)
[2017-12-29 16:28] LABS: BG BASE EXCESS -4.6 mmol/L (-2.0-2.0); BG CARBOXYHEMOGLOBIN 0.7 % (0.5-1.5); BG DEOXYHEMOGLOBIN 2.5 % (0.0-5.0); BG FRACTION INSPIRED OXYGEN 90; BG HCO3 ACT 22.3 mmol/L (22.0-26.0); BG METHEMOGLOBIN 0.4 % (0.0-1.5); BG OXYGEN SATURATION 97.5 % (92.0-98.5); BG OXYHEMOGLOBIN 96.4 % (94.0-97.0); BG PCO2 51.7 mmHg (35.0-45.0); BG PH 7.253 (7.350-7.450); BG PO2 112.7 mmHg (75.0-100.0); BG SAMPLE SITE RIGHT BRACHIAL; BG TIDAL VOLUME(mL) 500 mL; BG TOTAL HEMOGLOBIN 7.3 g/dL (12.0-18.0); BG VENT MODE VENT - A/C; BG VENT RATE 30 set
[2017-12-29] MEDS ORDERED: LORAZEPAM 2MG/ML CPJ IV PRN (18:30)
[2017-12-29] MEDS ORDERED: MIDAZOLAM HCL 100 MG in DEXT 5% WATER 80 ML IV PRN (20:30)
[2017-12-29] MEDS: QUETIAPINE FUMARATE 100MG TABLET PO SCH (21:07)
[2017-12-29] MEDS: INSULIN REGULAR (DRIP) 100 UNITS in SODIUM CHLORIDE 0.9% 99 ML IV SCH (23:39)
[2017-12-30] VITALS (102 sets, daily range): BP systolic 49–164; BP diastolic 22–96
[2017-12-30] MEDS: IPRATROPIUM/ALBUTEROL 0.5-3(2.5)MG/3ML NEB HHN SCH ×6 (00:20→21:03)
[2017-12-30] MEDS: BLOOD SUGAR DIAGNOSTIC STRIP TEST SCH ×7 (00:27→17:19)
[2017-12-30] MEDS: METOCLOPRAMIDE HCL 10MG/2ML VIAL IV SCH ×4 (00:30→17:50)
[2017-12-30] MEDS: PHENYLEPHRINE 80 MG in DEXT 5% WATER 492 ML IV PRN ×3 (01:37→16:07)
[2017-12-30] MEDS: DOXYCYCLINE 100 MG in DEXT 5% WATER 100 ML IV SCH (05:26)
[2017-12-30] MEDS: PROPOFOL 10MG/ML 100ML 100 ML IV PRN ×4 (05:27→19:47)
[2017-12-30] MEDS: METRONIDAZOLE 500 MG PREMIX 100 ML IV SCH ×3 (05:32→19:38)
[2017-12-30 07:10] LABS: BASOPHILS % 0.4 % (0.0-2.0); EOSINOPHILS % 1.6 % (0.0-5.0); LYMPHOCYTES % 9.6 % (20.0-50.0); MEAN CORPUSCULAR HEMOGLOBIN 26.4 pg (28.0-32.0); MEAN CORPUSCULAR VOLUME 84.3 fL (81.0-99.0); MEAN PLATELET VOLUME 7.9 fl (7.4-10.4); NEUTROPHILS % 85.4 % (40.0-76.0); PLATELET 78 x1000/uL (130-400); RED BLOOD CELL COUNT 2.49 mill/uL (4.2-5.4); RED CELL DISTRIBUTION WIDTH 21.1 % (11.6-14.6)
[2017-12-30 07:48] LABS: CHLORIDE 97 mEq/L (98-107)
[2017-12-30 07:52] LABS: HEMOGLOBIN. 6.6 g/dL (12.0-16.0)
[2017-12-30 07:53] LABS: HEMATOCRIT. 20.9 % (36.0-48.0)
[2017-12-30 07:56] LABS: PHOSPHORUS 3.7 mg/dL (2.5-4.9)
[2017-12-30] MEDS: FENTANYL CITRATE/PF 1,000 MCG in SODIUM CHLORIDE 0.9% 80 ML IV PRN ×2 (08:20→19:48)
[2017-12-30] MEDS: NOREPINEPHRINE 16 MG in DEXT 5% WATER 234 ML IV PRN (08:21)
[2017-12-30] MEDS: VANCOMYCIN 1250MG in DEXTROSE 5% WATER 250ML IV SCH (08:22)
[2017-12-30] MEDS: VENLAFAXINE HCL 50MG TABLET PO SCH ×2 (08:23→17:50)
[2017-12-30] MEDS: VORICONAZOLE 200MG TABLET PO SCH ×2 (08:23→19:36)
[2017-12-30] MEDS: DOCUSATE SODIUM SUGAR FREE 100MG/10ML UDC NG SCH (08:23)
[2017-12-30] MEDS: TRIHEXYPHENIDYL HCL 5 MG TABLET NG SCH ×2 (08:23→19:37)
[2017-12-30 08:30] LABS: BG CARBOXYHEMOGLOBIN 1.3 % (0.5-1.5); BG DEOXYHEMOGLOBIN 7.9 % (0.0-5.0); BG FRACTION INSPIRED OXYGEN 85; BG HCO3 ACT 23.3 mmol/L (22.0-26.0); BG METHEMOGLOBIN 0.3 % (0.0-1.5); BG OXYHEMOGLOBIN 90.5 % (94.0-97.0); BG PCO2 49.2 mmHg (35.0-45.0); BG PH 7.294 (7.350-7.450); BG PO2 71.2 mmHg (75.0-100.0); BG SAMPLE SITE RIGHT RADIAL; BG TIDAL VOLUME(mL) 550 mL; BG VENT MODE VENT - A/C; BG VENT RATE 30 set
[2017-12-30] MEDS: FLUPHENAZINE HCL 10 MG TABLET NG SCH ×2 (08:33→20:31)
[2017-12-30] MEDS: PANTOPRAZOLE SODIUM 40 MG/VIAL IV SCH (08:33)
[2017-12-30] MEDS: INSULIN LISPRO 100 UNITS/ML SUBCUT SCH ×2 (12:00→17:51)
[2017-12-30] MEDS: INSULIN GLARGINE UD 100 UNITS/ML SYR SUBCUT SCH ×2 (12:23→19:38)
[2017-12-30] MEDS: CEFEPIME 2,000 MG in DEXT 5% WATER 100 ML IV SCH (15:07)
[2017-12-30 15:28] LABS: HEMATOCRIT 24.9 % (36.0-48.0); HEMOGLOBIN 7.7 g/dL (12.0-16.0)
[2017-12-30] MEDS: ACETAMINOPHEN 325MG TABLET PO PRN (17:50)
[2017-12-30] MEDS ORDERED: QUETIAPINE FUMARATE 100MG TABLET PO SCH (21:00)
[2017-12-31] VITALS (100 sets, daily range): BP systolic 51–166; BP diastolic 19–105
[2017-12-31] MEDS: IPRATROPIUM/ALBUTEROL 0.5-3(2.5)MG/3ML NEB HHN SCH ×6 (01:21→19:51)
[2017-12-31] MEDS: INSULIN LISPRO 100 UNITS/ML SUBCUT SCH ×4 (02:27→18:24)
[2017-12-31] MEDS: METOCLOPRAMIDE HCL 10MG/2ML VIAL IV SCH ×4 (02:30→18:06)
[2017-12-31] MEDS: PROPOFOL 10MG/ML 100ML 100 ML IV PRN ×6 (02:32→23:56)
[2017-12-31] MEDS: NOREPINEPHRINE 16 MG in DEXT 5% WATER 234 ML IV PRN ×2 (04:52→18:07)
[2017-12-31] MEDS: METRONIDAZOLE 500 MG PREMIX 100 ML IV SCH ×2 (05:16→14:44)
[2017-12-31] MEDS: BLOOD SUGAR DIAGNOSTIC STRIP TEST SCH ×4 (05:36→18:07)
[2017-12-31 06:54] LABS: PHOSPHORUS 4.6 mg/dL (2.5-4.9)
[2017-12-31] MEDS: PHENYLEPHRINE 80 MG in DEXT 5% WATER 492 ML IV PRN ×3 (06:57→22:47)
[2017-12-31 08:51] LABS: BASOPHILS % 0.8 % (0.0-2.0); HEMATOCRIT. 24.5 % (36.0-48.0); HEMOGLOBIN. 7.7 g/dL (12.0-16.0); LYMPHOCYTES % 7.6 % (20.0-50.0); MEAN CORPUSCULAR HEMOGLOBIN 26.8 pg (28.0-32.0); MEAN CORPUSCULAR VOLUME 84.9 fL (81.0-99.0); MEAN PLATELET VOLUME 9.4 fl (7.4-10.4); NEUTROPHILS % 87.6 % (40.0-76.0); PLATELET 69 x1000/uL (130-400); RED BLOOD CELL COUNT 2.88 mill/uL (4.2-5.4); RED CELL DISTRIBUTION WIDTH 19.6 % (11.6-14.6)
[2017-12-31] MEDS: VENLAFAXINE HCL 50MG TABLET PO SCH (09:12)
[2017-12-31] MEDS: DOCUSATE SODIUM SUGAR FREE 100MG/10ML UDC NG SCH (09:12)
[2017-12-31] MEDS: TRIHEXYPHENIDYL HCL 5 MG TABLET NG SCH ×2 (09:12→21:48)
[2017-12-31] MEDS: VORICONAZOLE 200MG TABLET PO SCH ×2 (09:12→21:48)
[2017-12-31] MEDS: PANTOPRAZOLE SODIUM 40 MG/VIAL IV SCH (09:12)
[2017-12-31] MEDS: FLUPHENAZINE HCL 10 MG TABLET NG SCH ×2 (09:16→21:48)
[2017-12-31] MEDS ORDERED: INSULIN GLARGINE UD 100 UNITS/ML SYR SUBCUT SCH (10:00)
[2017-12-31 10:10] LABS: BG CARBOXYHEMOGLOBIN 0.2 % (0.5-1.5); BG DEOXYHEMOGLOBIN 4.6 % (0.0-5.0); BG FRACTION INSPIRED OXYGEN 80; BG HCO3 ACT 19.8 mmol/L (22.0-26.0); BG METHEMOGLOBIN 0.3 % (0.0-1.5); BG OXYGEN SATURATION 95.4 % (92.0-98.5); BG OXYHEMOGLOBIN 94.9 % (94.0-97.0); BG PH 7.252 (7.350-7.450); BG PO2 86.5 mmHg (75.0-100.0); BG SAMPLE SITE RIGHT RADIAL; BG TIDAL VOLUME(mL) 550 mL; BG TOTAL HEMOGLOBIN 8.8 g/dL (12.0-18.0); BG VENT MODE VENT - A/C; BG VENT RATE 30 set
[2017-12-31] MEDS ORDERED: MAGNESIUM 2 G PREMIX 50 ML IV ONE (10:45)
[2017-12-31] MEDS ORDERED: SODIUM BICARBONATE 8.4% 1 MEQ/ML 50ML SYR IV SCH (10:45)
[2017-12-31] MEDS: INSULIN GLARGINE UD 100 UNITS/ML SYR SUBCUT SCH ×2 (11:09→22:27)
[2017-12-31] MEDS ORDERED: MAGNESIUM SULFATE 2 GM in DEXTROSE 5% WATER 50 ML IV SCH (12:00)
[2017-12-31] MEDS: SODIUM BICARBONATE 150 MEQ in SODIUM CHLORIDE 0.45% 850 ML IV SCH (13:09)
[2017-12-31] MEDS: CEFEPIME 2,000 MG in DEXT 5% WATER 100 ML IV SCH (14:44)
[2017-12-31] MEDS: HYDROCORTISONE SOD SUCCINATE 100 MG/2 ML VIAL IV SCH ×2 (15:52→21:48)
[2017-12-31] MEDS: VASOPRESSIN 10 UNIT in SODIUM CHLORIDE 0.9% 99.5 ML IV PRN (16:00)
[2017-12-31] MEDS: PIPERACILLIN/TAZ 3.375G PREMIX 50 ML IV SCH (18:13)
[2017-12-31] MEDS: FENTANYL CITRATE/PF 500 MCG in SODIUM CHLORIDE 0.9% 40 ML IV PRN ×2 (18:32→23:56)
[2017-12-31] MEDS: VANCOMYCIN 1 G PREMIX 200 ML IV SCH (21:48)
[2017-12-31] MEDS ORDERED: PROPOFOL 10MG/ML 100ML 100 ML IV PRN (23:30)
[2018-01-01] VITALS (58 sets, daily range): BP systolic 82–153; BP diastolic 51–91
[2018-01-01] MEDS: IPRATROPIUM/ALBUTEROL 0.5-3(2.5)MG/3ML NEB HHN SCH ×7 (00:12→20:51)
[2018-01-01] MEDS: METOCLOPRAMIDE HCL 10MG/2ML VIAL IV SCH ×4 (00:56→22:23)
[2018-01-01] MEDS: INSULIN LISPRO 100 UNITS/ML SUBCUT SCH ×5 (00:56→22:26)
[2018-01-01] MEDS: PIPERACILLIN/TAZ 3.375G PREMIX 50 ML IV SCH ×3 (00:56→22:27)
[2018-01-01] MEDS: SODIUM BICARBONATE 150 MEQ in SODIUM CHLORIDE 0.45% 850 ML IV SCH ×2 (00:57→14:40)
[2018-01-01] MEDS: PROPOFOL 10MG/ML 100ML 100 ML IV PRN (03:52)
[2018-01-01] MEDS: FENTANYL CITRATE/PF 500 MCG in SODIUM CHLORIDE 0.9% 40 ML IV PRN ×3 (05:22→16:56)
[2018-01-01] MEDS: BLOOD SUGAR DIAGNOSTIC STRIP TEST SCH ×4 (06:00→18:00)
[2018-01-01] MEDS: HYDROCORTISONE SOD SUCCINATE 100 MG/2 ML VIAL IV SCH ×3 (06:02→22:27)
[2018-01-01] MEDS: NOREPINEPHRINE 16 MG in DEXT 5% WATER 234 ML IV PRN (06:06)
[2018-01-01] MEDS: PHENYLEPHRINE 80 MG in DEXT 5% WATER 492 ML IV PRN ×2 (06:28→15:37)
[2018-01-01] MEDS: TRIHEXYPHENIDYL HCL 5 MG TABLET NG SCH ×2 (09:00→22:22)
[2018-01-01] MEDS: PANTOPRAZOLE SODIUM 40 MG/VIAL IV SCH (09:00)
[2018-01-01] MEDS: DOCUSATE SODIUM SUGAR FREE 100MG/10ML UDC NG SCH (09:00)
[2018-01-01] MEDS: FLUPHENAZINE HCL 10 MG TABLET NG SCH ×2 (09:00→22:22)
[2018-01-01] MEDS: VORICONAZOLE 200MG TABLET PO SCH ×2 (09:00→22:23)
[2018-01-01 09:02] LABS: BG BASE EXCESS -2.3 mmol/L (-2.0-2.0); BG CARBOXYHEMOGLOBIN 0.4 % (0.5-1.5); BG DEOXYHEMOGLOBIN 1.4 % (0.0-5.0); BG FRACTION INSPIRED OXYGEN 80; BG HCO3 ACT 23.4 mmol/L (22.0-26.0); BG METHEMOGLOBIN 0.3 % (0.0-1.5); BG OXYGEN SATURATION 98.6 % (92.0-98.5); BG OXYHEMOGLOBIN 97.9 % (94.0-97.0); BG PCO2 44.5 mmHg (35.0-45.0); BG PH 7.339 (7.350-7.450); BG PO2 144.6 mmHg (75.0-100.0); BG SAMPLE SITE LEFT RADIAL; BG TIDAL VOLUME(mL) 550 mL; BG VENT MODE VENT - A/C; BG VENT RATE 30 set
[2018-01-01] MEDS: INSULIN GLARGINE UD 100 UNITS/ML SYR SUBCUT SCH ×2 (10:00→22:25)
[2018-01-01 10:44] LABS: HEMATOCRIT. 30.1 % (36.0-48.0); HEMOGLOBIN. 9.5 g/dL (12.0-16.0); MEAN CORPUSCULAR HEMOGLOBIN 26.5 pg (28.0-32.0); MEAN CORPUSCULAR VOLUME 84.1 fL (81.0-99.0); MEAN PLATELET VOLUME 10.2 fl (7.4-10.4); PLATELET 104 x1000/uL (130-400); RED BLOOD CELL COUNT 3.58 mill/uL (4.2-5.4); RED CELL DISTRIBUTION WIDTH 19.8 % (11.6-14.6)
[2018-01-01 11:16] LABS: PLATELET ESTIMATE SLIGHTLY DECREASED
[2018-01-01] MEDS ORDERED: PROPOFOL 10MG/ML 100ML 100 ML IV PRN (11:28)
[2018-01-01 11:35] LABS: CHLORIDE 90 mEq/L (98-107)
[2018-01-01 11:44] LABS: PHOSPHORUS 4.3 mg/dL (2.5-4.9)
[2018-01-01] MEDS ORDERED: FENTANYL CITRATE/PF 1,000 MCG in SODIUM CHLORIDE 0.9% 80 ML IV PRN (23:00)
[2018-01-02] VITALS (105 sets, daily range): BP systolic 58–145; BP diastolic 34–88
[2018-01-02] MEDS: IPRATROPIUM/ALBUTEROL 0.5-3(2.5)MG/3ML NEB HHN SCH ×7 (00:45→19:52)
[2018-01-02] MEDS: BLOOD SUGAR DIAGNOSTIC STRIP TEST SCH ×4 (00:53→16:51)
[2018-01-02] MEDS: PHENYLEPHRINE 80 MG in DEXT 5% WATER 492 ML IV PRN ×3 (01:20→20:05)
[2018-01-02] MEDS: FENTANYL CITRATE/PF 1,000 MCG in SODIUM CHLORIDE 0.9% 80 ML IV PRN ×3 (01:21→20:06)
[2018-01-02] MEDS: PIPERACILLIN/TAZ 3.375G PREMIX 50 ML IV SCH ×4 (04:03→21:30)
[2018-01-02] MEDS: NOREPINEPHRINE 16 MG in DEXT 5% WATER 234 ML IV PRN ×2 (04:03→20:04)
[2018-01-02 04:40] LABS: HEMATOCRIT. 27.8 % (36.0-48.0); HEMOGLOBIN. 8.9 g/dL (12.0-16.0); MEAN CORPUSCULAR HEMOGLOBIN 26.3 pg (28.0-32.0); MEAN PLATELET VOLUME 8.8 fl (7.4-10.4); PLATELET 113 x1000/uL (130-400); RED BLOOD CELL COUNT 3.39 mill/uL (4.2-5.4); RED CELL DISTRIBUTION WIDTH 19.5 % (11.6-14.6)
[2018-01-02 04:43] LABS: CHLORIDE 93 mEq/L (98-107)
[2018-01-02 04:55] LABS: PHOSPHORUS 4.2 mg/dL (2.5-4.9)
[2018-01-02] MEDS: HYDROCORTISONE SOD SUCCINATE 100 MG/2 ML VIAL IV SCH ×3 (05:26→21:33)
[2018-01-02] MEDS: METOCLOPRAMIDE HCL 10MG/2ML VIAL IV SCH ×3 (05:26→21:33)
[2018-01-02] MEDS: INSULIN LISPRO 100 UNITS/ML SUBCUT SCH ×3 (06:14→18:00)
[2018-01-02 08:58] LABS: BG CARBOXYHEMOGLOBIN 0.1 % (0.5-1.5); BG DEOXYHEMOGLOBIN 1.8 % (0.0-5.0); BG FRACTION INSPIRED OXYGEN 70; BG HCO3 ACT 25.4 mmol/L (22.0-26.0); BG METHEMOGLOBIN 0.1 % (0.0-1.5); BG OXYGEN SATURATION 98.2 % (92.0-98.5); BG PCO2 45.1 mmHg (35.0-45.0); BG PH 7.369 (7.350-7.450); BG PO2 126.2 mmHg (75.0-100.0); BG SAMPLE SITE RIGHT RADIAL; BG TIDAL VOLUME(mL) 550 mL; BG VENT MODE VENT - A/C; BG VENT RATE 30 set
[2018-01-02] MEDS: SODIUM BICARBONATE 150 MEQ in SODIUM CHLORIDE 0.45% 850 ML IV SCH (09:50)
[2018-01-02] MEDS: FLUPHENAZINE HCL 10 MG TABLET NG SCH ×2 (09:51→21:31)
[2018-01-02] MEDS: VANCOMYCIN 1 G PREMIX 200 ML IV SCH (09:53)
[2018-01-02] MEDS: DOCUSATE SODIUM SUGAR FREE 100MG/10ML UDC NG SCH (09:53)
[2018-01-02] MEDS: TRIHEXYPHENIDYL HCL 5 MG TABLET NG SCH ×2 (09:53→21:33)
[2018-01-02] MEDS: VORICONAZOLE 200MG TABLET PO SCH ×2 (09:54→21:33)
[2018-01-02] MEDS: INSULIN GLARGINE UD 100 UNITS/ML SYR SUBCUT SCH ×2 (09:58→21:33)
[2018-01-02 10:09] LABS: PLATELET ESTIMATE SLIGHTLY DECREASED
[2018-01-02] MEDS: PANTOPRAZOLE SODIUM 40 MG/VIAL IV SCH (10:15)
[2018-01-02] MEDS ORDERED: NA PHOS,M-B/NA PHOS,DI-BA ENEMA 118ML PR PRN (10:45)
[2018-01-02] MEDS ORDERED: BISACODYL 10MG SUPP PR NR (10:45)
[2018-01-02] MEDS: ACETAMINOPHEN 325MG TABLET PO PRN (11:12)
[2018-01-02] MEDS: PROPOFOL 10MG/ML 100ML 100 ML IV PRN ×2 (11:14→17:38)
[2018-01-02] MEDS: VASOPRESSIN 10 UNIT in SODIUM CHLORIDE 0.9% 99.5 ML IV PRN (12:16)
[2018-01-02 14:19] LABS: BG BASE EXCESS 2.7 mmol/L (-2.0-2.0); BG CARBOXYHEMOGLOBIN 0.3 % (0.5-1.5); BG DEOXYHEMOGLOBIN 8.1 % (0.0-5.0); BG FRACTION INSPIRED OXYGEN 60; BG HCO3 ACT 27.5 mmol/L (22.0-26.0); BG METHEMOGLOBIN 0.2 % (0.0-1.5); BG OXYGEN SATURATION 91.9 % (92.0-98.5); BG OXYHEMOGLOBIN 91.4 % (94.0-97.0); BG PCO2 43.8 mmHg (35.0-45.0); BG PH 7.416 (7.350-7.450); BG SAMPLE SITE RIGHT RADIAL; BG TIDAL VOLUME(mL) 550 mL; BG TOTAL HEMOGLOBIN 8.9 g/dL (12.0-18.0); BG VENT MODE VENT - A/C; BG VENT RATE 30 set
[2018-01-03] VITALS (92 sets, daily range): BP systolic 85–142; BP diastolic 50–83
[2018-01-03] MEDS: BLOOD SUGAR DIAGNOSTIC STRIP TEST SCH ×5 (00:05→23:49)
[2018-01-03] MEDS: IPRATROPIUM/ALBUTEROL 0.5-3(2.5)MG/3ML NEB HHN SCH ×6 (00:17→19:59)
[2018-01-03] MEDS: ACETAMINOPHEN 325MG TABLET PO PRN (02:35)
[2018-01-03] MEDS: PIPERACILLIN/TAZ 3.375G PREMIX 50 ML IV SCH ×4 (03:24→21:15)
[2018-01-03] MEDS: HYDROCORTISONE SOD SUCCINATE 100 MG/2 ML VIAL IV SCH ×3 (05:51→21:15)
[2018-01-03] MEDS: INSULIN LISPRO 100 UNITS/ML SUBCUT SCH ×4 (05:51→17:43)
[2018-01-03] MEDS: METOCLOPRAMIDE HCL 10MG/2ML VIAL IV SCH ×3 (05:51→21:15)
[2018-01-03] MEDS: FENTANYL CITRATE/PF 1,000 MCG in SODIUM CHLORIDE 0.9% 80 ML IV PRN ×2 (06:15→16:16)
[2018-01-03 06:26] LABS: HEMATOCRIT. 23.6 % (36.0-48.0); HEMOGLOBIN. 7.6 g/dL (12.0-16.0); MEAN CORPUSCULAR HEMOGLOBIN 26.3 pg (28.0-32.0); MEAN CORPUSCULAR VOLUME 81.3 fL (81.0-99.0); MEAN PLATELET VOLUME 8.5 fl (7.4-10.4); PLATELET 117 x1000/uL (130-400); RED CELL DISTRIBUTION WIDTH 19.2 % (11.6-14.6)
[2018-01-03 06:30] LABS: CHLORIDE 94 mEq/L (98-107)
[2018-01-03 06:40] LABS: PHOSPHORUS 3.7 mg/dL (2.5-4.9)
[2018-01-03 08:50] LABS: BG BASE EXCESS 2.2 mmol/L (-2.0-2.0); BG CARBOXYHEMOGLOBIN 0.5 % (0.5-1.5); BG DEOXYHEMOGLOBIN 3.5 % (0.0-5.0); BG FRACTION INSPIRED OXYGEN 50; BG HCO3 ACT 26.2 mmol/L (22.0-26.0); BG METHEMOGLOBIN 0.3 % (0.0-1.5); BG OXYGEN SATURATION 96.5 % (92.0-98.5); BG OXYHEMOGLOBIN 95.7 % (94.0-97.0); BG PCO2 38.1 mmHg (35.0-45.0); BG PH 7.455 (7.350-7.450); BG PO2 89.7 mmHg (75.0-100.0); BG SAMPLE SITE RIGHT RADIAL; BG TIDAL VOLUME(mL) 600 mL; BG TOTAL HEMOGLOBIN 8.4 g/dL (12.0-18.0); BG VENT MODE VENT - A/C; BG VENT RATE 30 set
[2018-01-03] MEDS ORDERED: BISACODYL 10MG SUPP PR PRN (09:00)
[2018-01-03] MEDS: DOCUSATE SODIUM SUGAR FREE 100MG/10ML UDC NG SCH (09:13)
[2018-01-03] MEDS: PANTOPRAZOLE SODIUM 40 MG/VIAL IV SCH (09:13)
[2018-01-03] MEDS: TRIHEXYPHENIDYL HCL 5 MG TABLET NG SCH ×2 (09:13→21:15)
[2018-01-03] MEDS: FLUPHENAZINE HCL 10 MG TABLET NG SCH ×2 (09:13→21:15)
[2018-01-03] MEDS: VORICONAZOLE 200MG TABLET PO SCH ×2 (09:13→21:15)
[2018-01-03] MEDS: NOREPINEPHRINE 16 MG in DEXT 5% WATER 234 ML IV PRN (09:13)
[2018-01-03] MEDS: INSULIN GLARGINE UD 100 UNITS/ML SYR SUBCUT SCH ×2 (09:15→21:16)
[2018-01-03] MEDS ORDERED: KCL 20MEQ/100ML PREMIX 100 ML IV NR (10:00)
[2018-01-03] MEDS: SODIUM CHL 0.45% + KCL 20MEQ/L 1,000 ML IV SCH (10:37)
[2018-01-03] MEDS ORDERED: NA PHOS,M-B/NA PHOS,DI-BA ENEMA 118ML PR PRN (11:00)
[2018-01-03 11:22] LABS: PLATELET ESTIMATE SLIGHTLY DECREASED
[2018-01-03] MEDS: ACETAMINOPHEN 650MG/20.3ML UDC GT PRN (14:59)
[2018-01-03] MEDS: LACTULOSE 20G/30ML UDC PO PRN (15:44)
[2018-01-03] MEDS: VANCOMYCIN 1 G PREMIX 200 ML IV SCH (21:15)
[2018-01-04] VITALS (58 sets, daily range): BP systolic 91–149; BP diastolic 56–85
[2018-01-04] MEDS: IPRATROPIUM/ALBUTEROL 0.5-3(2.5)MG/3ML NEB HHN SCH ×6 (00:03→20:40)
[2018-01-04] MEDS: INSULIN LISPRO 100 UNITS/ML SUBCUT SCH ×4 (00:10→18:56)
[2018-01-04] MEDS: NOREPINEPHRINE 16 MG in DEXT 5% WATER 234 ML IV PRN ×2 (00:27→18:57)
[2018-01-04] MEDS: PIPERACILLIN/TAZ 3.375G PREMIX 50 ML IV SCH ×3 (03:49→18:54)
[2018-01-04] MEDS: FENTANYL CITRATE/PF 1,000 MCG in SODIUM CHLORIDE 0.9% 80 ML IV PRN ×2 (04:58→19:04)
[2018-01-04] MEDS: METOCLOPRAMIDE HCL 10MG/2ML VIAL IV SCH ×3 (05:05→21:15)
[2018-01-04] MEDS: HYDROCORTISONE SOD SUCCINATE 100 MG/2 ML VIAL IV SCH ×3 (05:06→21:15)
[2018-01-04] MEDS: BLOOD SUGAR DIAGNOSTIC STRIP TEST SCH ×3 (05:06→17:36)
[2018-01-04] MEDS: SODIUM CHL 0.45% + KCL 20MEQ/L 1,000 ML IV SCH (05:06)
[2018-01-04 07:11] LABS: BASOPHILS % 0.3 % (0.0-2.0); HEMATOCRIT. 22.2 % (36.0-48.0); HEMOGLOBIN. 7.1 g/dL (12.0-16.0); LYMPHOCYTES % 7.3 % (20.0-50.0); MEAN CORPUSCULAR HEMOGLOBIN 26.2 pg (28.0-32.0); MEAN CORPUSCULAR VOLUME 82.5 fL (81.0-99.0); MEAN PLATELET VOLUME 9.4 fl (7.4-10.4); MONOCYTES % 4.3 % (2.0-8.0); NEUTROPHILS % 88.1 % (40.0-76.0); PLATELET 116 x1000/uL (130-400); RED BLOOD CELL COUNT 2.69 mill/uL (4.2-5.4); RED CELL DISTRIBUTION WIDTH 19.2 % (11.6-14.6)
[2018-01-04] MEDS ORDERED: POTASSIUM CHLORIDE 20MEQ/PACKET GT NR (08:13)
[2018-01-04 08:52] LABS: BG FRACTION INSPIRED OXYGEN 50; BG OXYHEMOGLOBIN 95.1 % (94.0-97.0); BG SAMPLE SITE LEFT RADIAL; BG TIDAL VOLUME(mL) 600 mL; BG VENT MODE VENT - A/C; BG VENT RATE 30 set
[2018-01-04] MEDS: DOCUSATE SODIUM SUGAR FREE 100MG/10ML UDC NG SCH (09:00)
[2018-01-04 09:05] LABS: BG PCO2 31.6 mmHg (35.0-45.0); BG PH 7.417 (7.350-7.450); BG PO2 87.4 mmHg (75.0-100.0)
[2018-01-04 09:06] LABS: BG BASE EXCESS -4.1 mmol/L (-2.0-2.0); BG CARBOXYHEMOGLOBIN 0.2 % (0.5-1.5); BG HCO3 ACT 19.9 mmol/L (22.0-26.0); BG OXYGEN SATURATION 95.5 % (92.0-98.5); BG TOTAL HEMOGLOBIN 7.9 g/dL (12.0-18.0)
[2018-01-04 09:07] LABS: BG DEOXYHEMOGLOBIN 4.5 % (0.0-5.0); BG METHEMOGLOBIN 0.2 % (0.0-1.5)
[2018-01-04] MEDS: TRIHEXYPHENIDYL HCL 5 MG TABLET NG SCH ×2 (09:53→21:15)
[2018-01-04] MEDS: FLUPHENAZINE HCL 10 MG TABLET NG SCH ×2 (09:53→21:15)
[2018-01-04] MEDS: PANTOPRAZOLE SODIUM 40 MG/VIAL IV SCH (09:54)
[2018-01-04] MEDS: VORICONAZOLE 200MG TABLET PO SCH ×2 (09:54→21:15)
[2018-01-04] MEDS: INSULIN GLARGINE UD 100 UNITS/ML SYR SUBCUT SCH ×2 (09:58→21:18)
[2018-01-04] MEDS ORDERED: LORAZEPAM 2MG/ML CPJ IV PRN (10:30)
[2018-01-04] MEDS ORDERED: MAGNESIUM 2 G PREMIX 50 ML IV SCH (11:30)
[2018-01-04] MEDS ORDERED: POTASSIUM CHLORIDE 20MEQ/PACKET PO SCH (14:00)
[2018-01-04] MEDS: LACTULOSE 20G/30ML UDC PO PRN (21:16)
[2018-01-05] VITALS (60 sets, daily range): BP systolic 94–145; BP diastolic 50–95
[2018-01-05] MEDS: BLOOD SUGAR DIAGNOSTIC STRIP TEST SCH ×5 (00:02→23:25)
[2018-01-05] MEDS: INSULIN LISPRO 100 UNITS/ML SUBCUT SCH ×5 (00:31→23:25)
[2018-01-05] MEDS: IPRATROPIUM/ALBUTEROL 0.5-3(2.5)MG/3ML NEB HHN SCH ×6 (00:32→20:32)
[2018-01-05] MEDS: PIPERACILLIN/TAZ 3.375G PREMIX 50 ML IV SCH ×3 (01:57→18:02)
[2018-01-05] MEDS: SODIUM CHL 0.45% + KCL 20MEQ/L 1,000 ML IV SCH (02:04)
[2018-01-05] MEDS: HYDROCORTISONE SOD SUCCINATE 100 MG/2 ML VIAL IV SCH ×3 (05:56→21:16)
[2018-01-05] MEDS: METOCLOPRAMIDE HCL 10MG/2ML VIAL IV SCH ×3 (05:56→21:16)
[2018-01-05 06:30] LABS: HEMATOCRIT. 21.3 % (36.0-48.0); MEAN CORPUSCULAR HEMOGLOBIN 26.4 pg (28.0-32.0); MEAN PLATELET VOLUME 9.7 fl (7.4-10.4); PLATELET 123 x1000/uL (130-400); RED BLOOD CELL COUNT 2.56 mill/uL (4.2-5.4)
[2018-01-05 06:47] LABS: HEMOGLOBIN. 6.8 g/dL (12.0-16.0)
[2018-01-05] MEDS: FENTANYL CITRATE/PF 1,000 MCG in SODIUM CHLORIDE 0.9% 80 ML IV PRN (07:07)
[2018-01-05] MEDS ORDERED: POTASSIUM CHLORIDE 20MEQ/PACKET PO SCH ×2 (07:45→13:00)
[2018-01-05 07:49] LABS: BG BASE EXCESS -1.7 mmol/L (-2.0-2.0); BG CARBOXYHEMOGLOBIN 0.4 % (0.5-1.5); BG DEOXYHEMOGLOBIN 3.6 % (0.0-5.0); BG FRACTION INSPIRED OXYGEN 50; BG HCO3 ACT 22.8 mmol/L (22.0-26.0); BG METHEMOGLOBIN 0.1 % (0.0-1.5); BG OXYGEN SATURATION 96.4 % (92.0-98.5); BG OXYHEMOGLOBIN 95.9 % (94.0-97.0); BG PCO2 37.4 mmHg (35.0-45.0); BG PH 7.403 (7.350-7.450); BG PO2 97.7 mmHg (75.0-100.0); BG SAMPLE SITE LEFT RADIAL; BG TIDAL VOLUME(mL) 600 mL; BG TOTAL HEMOGLOBIN 7.3 g/dL (12.0-18.0); BG VENT MODE VENT - A/C; BG VENT RATE 30 set
[2018-01-05] MEDS ORDERED: FENTANYL CITRATE/PF 1,000 MCG in SODIUM CHLORIDE 0.9% 80 ML IV PRN (08:00)
[2018-01-05] MEDS: DOCUSATE SODIUM SUGAR FREE 100MG/10ML UDC NG SCH (09:00)
[2018-01-05] MEDS: PANTOPRAZOLE SODIUM 40 MG/VIAL IV SCH (09:58)
[2018-01-05] MEDS: TRIHEXYPHENIDYL HCL 5 MG TABLET NG SCH ×2 (09:58→21:16)
[2018-01-05] MEDS: FLUPHENAZINE HCL 10 MG TABLET NG SCH ×2 (09:58→21:15)
[2018-01-05] MEDS: VORICONAZOLE 200MG TABLET PO SCH ×2 (09:59→21:15)
[2018-01-05] MEDS: INSULIN GLARGINE UD 100 UNITS/ML SYR SUBCUT SCH ×2 (10:06→21:58)
[2018-01-05 10:25] LABS: NUCLEATED RED BLOOD CELLS 2 /100 WBC
[2018-01-05 10:26] LABS: PLATELET ESTIMATE SLIGHTLY DECREASED
[2018-01-05 13:31] LABS: HEMATOCRIT. 23.9 % (36.0-48.0); HEMOGLOBIN. 7.6 g/dL (12.0-16.0); MEAN CORPUSCULAR HEMOGLOBIN 26.8 pg (28.0-32.0); MEAN CORPUSCULAR VOLUME 83.6 fL (81.0-99.0); PLATELET 117 x1000/uL (130-400); RED BLOOD CELL COUNT 2.86 mill/uL (4.2-5.4); RED CELL DISTRIBUTION WIDTH 18.6 % (11.6-14.6)
[2018-01-05 13:40] LABS: INR 1.1; PARTIAL THROMBOPLASTIN TIME 22.6 sec (23.4-31.0); PROTHROMBIN TIME 10.9 sec (9.1-11.1)
[2018-01-05 13:50] LABS: NUCLEATED RED BLOOD CELLS 3 /100 WBC
[2018-01-05 13:51] LABS: PLATELET ESTIMATE SLIGHTLY DECREASED
[2018-01-05 23:16] LABS: BASOPHILS % 0.6 % (0.0-2.0); EOSINOPHILS % 0.1 % (0.0-5.0); HEMATOCRIT. 27.8 % (36.0-48.0); HEMOGLOBIN. 9.1 g/dL (12.0-16.0); LYMPHOCYTES % 7.2 % (20.0-50.0); MEAN CORPUSCULAR HEMOGLOBIN 27.7 pg (28.0-32.0); MEAN CORPUSCULAR VOLUME 84.7 fL (81.0-99.0); MEAN PLATELET VOLUME 10.7 fl (7.4-10.4); MONOCYTES % 2.6 % (2.0-8.0); NEUTROPHILS % 89.5 % (40.0-76.0); PLATELET 120 x1000/uL (130-400); RED BLOOD CELL COUNT 3.28 mill/uL (4.2-5.4); RED CELL DISTRIBUTION WIDTH 17.6 % (11.6-14.6)
[2018-01-06] VITALS (66 sets, daily range): BP systolic 101–149; BP diastolic 56–79
[2018-01-06] MEDS: IPRATROPIUM/ALBUTEROL 0.5-3(2.5)MG/3ML NEB HHN SCH ×6 (00:51→20:40)
[2018-01-06] MEDS: PIPERACILLIN/TAZ 3.375G PREMIX 50 ML IV SCH ×3 (01:11→17:52)
[2018-01-06] MEDS: NOREPINEPHRINE 16 MG in DEXT 5% WATER 234 ML IV PRN (01:12)
[2018-01-06] MEDS: METOCLOPRAMIDE HCL 10MG/2ML VIAL IV SCH ×3 (05:27→21:03)
[2018-01-06] MEDS: HYDROCORTISONE SOD SUCCINATE 100 MG/2 ML VIAL IV SCH ×3 (05:27→21:03)
[2018-01-06] MEDS: BLOOD SUGAR DIAGNOSTIC STRIP TEST SCH ×3 (05:35→17:48)
[2018-01-06] MEDS: INSULIN LISPRO 100 UNITS/ML SUBCUT SCH ×3 (05:35→17:52)
[2018-01-06 06:04] LABS: BASOPHILS % 0.2 % (0.0-2.0); EOSINOPHILS % 0.2 % (0.0-5.0); HEMATOCRIT. 28.1 % (36.0-48.0); HEMOGLOBIN. 9.1 g/dL (12.0-16.0); LYMPHOCYTES % 8.4 % (20.0-50.0); MEAN CORPUSCULAR HEMOGLOBIN 27.4 pg (28.0-32.0); MEAN CORPUSCULAR VOLUME 84.4 fL (81.0-99.0); MEAN PLATELET VOLUME 10.1 fl (7.4-10.4); MONOCYTES % 2.5 % (2.0-8.0); NEUTROPHILS % 88.7 % (40.0-76.0); PLATELET 130 x1000/uL (130-400); RED BLOOD CELL COUNT 3.33 mill/uL (4.2-5.4)
[2018-01-06 06:09] LABS: INR 1.1; PARTIAL THROMBOPLASTIN TIME 22.2 sec (23.4-31.0); PROTHROMBIN TIME 11.2 sec (9.1-11.1)
[2018-01-06 07:57] LABS: BG BASE EXCESS 0.3 mmol/L (-2.0-2.0); BG CARBOXYHEMOGLOBIN 0.3 % (0.5-1.5); BG DEOXYHEMOGLOBIN 0.7 % (0.0-5.0); BG FRACTION INSPIRED OXYGEN 45; BG HCO3 ACT 22.6 mmol/L (22.0-26.0); BG METHEMOGLOBIN 0.3 % (0.0-1.5); BG OXYGEN SATURATION 99.3 % (92.0-98.5); BG OXYHEMOGLOBIN 98.7 % (94.0-97.0); BG PCO2 28.5 mmHg (35.0-45.0); BG PH 7.518 (7.350-7.450); BG PO2 353.3 mmHg (75.0-100.0); BG SAMPLE SITE RIGHT RADIAL; BG TIDAL VOLUME(mL) 600 mL; BG TOTAL HEMOGLOBIN 9.5 g/dL (12.0-18.0); BG VENT MODE VENT - A/C; BG VENT RATE 26 set
[2018-01-06] MEDS: TRIHEXYPHENIDYL HCL 5 MG TABLET NG SCH ×2 (08:09→20:56)
[2018-01-06] MEDS: DOCUSATE SODIUM SUGAR FREE 100MG/10ML UDC NG SCH (08:09)
[2018-01-06] MEDS: VORICONAZOLE 200MG TABLET PO SCH ×2 (08:09→20:56)
[2018-01-06] MEDS: PANTOPRAZOLE SODIUM 40 MG/VIAL IV SCH (08:10)
[2018-01-06] MEDS: FLUPHENAZINE HCL 10 MG TABLET NG SCH ×2 (08:10→20:56)
[2018-01-06 08:52] LABS: BG BASE EXCESS -0.2 mmol/L (-2.0-2.0); BG CARBOXYHEMOGLOBIN 0.1 % (0.5-1.5); BG DEOXYHEMOGLOBIN 2.2 % (0.0-5.0); BG FRACTION INSPIRED OXYGEN 45; BG HCO3 ACT 22.3 mmol/L (22.0-26.0); BG METHEMOGLOBIN 0.1 % (0.0-1.5); BG OXYGEN SATURATION 97.8 % (92.0-98.5); BG OXYHEMOGLOBIN 97.6 % (94.0-97.0); BG PCO2 28.8 mmHg (35.0-45.0); BG PH 7.507 (7.350-7.450); BG PO2 105.9 mmHg (75.0-100.0); BG SAMPLE SITE RIGHT RADIAL; BG TIDAL VOLUME(mL) 600 mL; BG TOTAL HEMOGLOBIN 9.5 g/dL (12.0-18.0); BG VENT MODE VENT - A/C; BG VENT RATE 26 set
[2018-01-06] MEDS ORDERED: FENTANYL CITRATE/PF 500 MCG in SODIUM CHLORIDE 0.9% 40 ML IV PRN (09:30)
[2018-01-06] MEDS: INSULIN GLARGINE UD 100 UNITS/ML SYR SUBCUT SCH ×2 (09:36→21:03)
[2018-01-06] MEDS ORDERED: SODIUM BICARBONATE 4% (2.4MEQ) 5ML VIAL IV ONE (09:48)
[2018-01-06] MEDS ORDERED: IOHEXOL-300 50 ML BOTTLE IV ONE (09:49)
[2018-01-06] MEDS ORDERED: IOHEXOL-300 100 ML BOTTLE ONE (09:49)
[2018-01-06] MEDS ORDERED: LIDOCAINE HCL 1% 10 MG/ML 10ML VIAL ONE (09:49)
[2018-01-06 10:22] LABS: PHOSPHORUS 4.8 mg/dL (2.5-4.9)
[2018-01-06 10:26] LABS: T4 FREE 0.51 ng/dL (0.76-1.46)
[2018-01-06] MEDS ORDERED: LORAZEPAM 2MG/ML CPJ IV PRN (10:30)
[2018-01-06] MEDS: DEXT 5%/0.45% NACL KCL 20MEQ/L 1,000 ML IV SCH (11:04)
[2018-01-06] MEDS ORDERED: MIDAZOLAM HCL 2 MG/2 ML VIAL ONE (12:26)
[2018-01-06] MEDS ORDERED: ROCURONIUM BROMIDE 10MG/ML VIAL 5ML IV ONE (12:26)
[2018-01-06] MEDS ORDERED: CEFAZOLIN SODIUM 1000MG/VIAL ONE (12:35)
[2018-01-06] MEDS ORDERED: FENTANYL CITRATE/PF 50MCG/ML 2ML VIAL ONE (13:31)
[2018-01-07] VITALS (57 sets, daily range): BP systolic 114–150; BP diastolic 62–110
[2018-01-07] MEDS: IPRATROPIUM/ALBUTEROL 0.5-3(2.5)MG/3ML NEB HHN SCH ×6 (00:10→20:45)
[2018-01-07] MEDS: BLOOD SUGAR DIAGNOSTIC STRIP TEST SCH ×5 (00:40→23:04)
[2018-01-07] MEDS: DEXT 5%/0.45% NACL KCL 20MEQ/L 1,000 ML IV SCH (00:41)
[2018-01-07] MEDS: MORPHINE SULFATE 4 MG/ML CPJ (NOT FOR IM USE) IV PRN ×3 (00:42→10:54)
[2018-01-07] MEDS: INSULIN LISPRO 100 UNITS/ML SUBCUT SCH ×5 (00:43→23:05)
[2018-01-07] MEDS: ACETAMINOPHEN 325MG TABLET PO PRN (01:01)
[2018-01-07] MEDS: PIPERACILLIN/TAZ 3.375G PREMIX 50 ML IV SCH ×3 (02:01→17:08)
[2018-01-07] MEDS: HYDROCORTISONE SOD SUCCINATE 100 MG/2 ML VIAL IV SCH ×2 (05:13→17:07)
[2018-01-07] MEDS: METOCLOPRAMIDE HCL 10MG/2ML VIAL IV SCH ×3 (05:13→22:09)
[2018-01-07 06:25] LABS: BASOPHILS % 0.1 % (0.0-2.0); HEMATOCRIT. 27.9 % (36.0-48.0); LYMPHOCYTES % 9.2 % (20.0-50.0); MEAN CORPUSCULAR HEMOGLOBIN 27.5 pg (28.0-32.0); MEAN CORPUSCULAR VOLUME 85.2 fL (81.0-99.0); MEAN PLATELET VOLUME 10.1 fl (7.4-10.4); MONOCYTES % 3.1 % (2.0-8.0); NEUTROPHILS % 87.6 % (40.0-76.0); PLATELET 158 x1000/uL (130-400); RED BLOOD CELL COUNT 3.27 mill/uL (4.2-5.4); RED CELL DISTRIBUTION WIDTH 18.2 % (11.6-14.6)
[2018-01-07 06:32] LABS: INR 1.2; PARTIAL THROMBOPLASTIN TIME 23.2 sec (23.4-31.0); PROTHROMBIN TIME 11.6 sec (9.1-11.1)
[2018-01-07 06:45] LABS: CHLORIDE 108 mEq/L (98-107)
[2018-01-07 06:56] LABS: PHOSPHORUS 4.3 mg/dL (2.5-4.9)
[2018-01-07] MEDS: TRIHEXYPHENIDYL HCL 5 MG TABLET NG SCH ×2 (08:27→22:07)
[2018-01-07] MEDS: VORICONAZOLE 200MG TABLET PO SCH ×2 (08:27→22:07)
[2018-01-07] MEDS: PANTOPRAZOLE SODIUM 40 MG/VIAL IV SCH (08:27)
[2018-01-07] MEDS: DOCUSATE SODIUM SUGAR FREE 100MG/10ML UDC NG SCH (08:27)
[2018-01-07] MEDS: FLUPHENAZINE HCL 10 MG TABLET NG SCH ×3 (08:28→21:06)
[2018-01-07] MEDS: VENLAFAXINE HCL 50MG TABLET PO SCH ×2 (09:00→22:07)
[2018-01-07 09:21] LABS: BG BASE EXCESS -2.8 mmol/L (-2.0-2.0); BG CARBOXYHEMOGLOBIN 0.5 % (0.5-1.5); BG DEOXYHEMOGLOBIN 2.1 % (0.0-5.0); BG FRACTION INSPIRED OXYGEN 40; BG HCO3 ACT 20.4 mmol/L (22.0-26.0); BG METHEMOGLOBIN 0.1 % (0.0-1.5); BG OXYGEN SATURATION 97.9 % (92.0-98.5); BG OXYHEMOGLOBIN 97.3 % (94.0-97.0); BG PCO2 29.7 mmHg (35.0-45.0); BG PH 7.454 (7.350-7.450); BG PO2 116.4 mmHg (75.0-100.0); BG SAMPLE SITE RIGHT RADIAL; BG TIDAL VOLUME(mL) 600 mL; BG TOTAL HEMOGLOBIN 10.2 g/dL (12.0-18.0); BG VENT MODE VENT - A/C; BG VENT RATE 22 set
[2018-01-07] MEDS: INSULIN GLARGINE UD 100 UNITS/ML SYR SUBCUT SCH ×2 (10:00→22:28)
[2018-01-07] MEDS ORDERED: KCL 20MEQ/100ML PREMIX 100 ML IV SCH ×2 (10:00→14:00)
[2018-01-07] MEDS: POTASSIUM CHLORIDE INJ 40 MEQ in DEXT 5%/0.2% NACL 1,000 ML IV SCH (10:52)
[2018-01-08] VITALS (12 sets, daily range): BP systolic 131–156; BP diastolic 74–93
[2018-01-08] MEDS: IPRATROPIUM/ALBUTEROL 0.5-3(2.5)MG/3ML NEB HHN SCH ×4 (00:44→20:31)
[2018-01-08] MEDS: POTASSIUM CHLORIDE INJ 40 MEQ in DEXT 5%/0.2% NACL 1,000 ML IV SCH ×2 (00:59→15:05)
[2018-01-08] MEDS: PIPERACILLIN/TAZ 3.375G PREMIX 50 ML IV SCH ×2 (01:03→09:09)
[2018-01-08] MEDS: METOCLOPRAMIDE HCL 10MG/2ML VIAL IV SCH ×3 (05:44→22:23)
[2018-01-08] MEDS: HYDROCORTISONE SOD SUCCINATE 100 MG/2 ML VIAL IV SCH (05:44)
[2018-01-08] MEDS: BLOOD SUGAR DIAGNOSTIC STRIP TEST SCH ×4 (05:44→23:21)
[2018-01-08] MEDS: INSULIN LISPRO 100 UNITS/ML SUBCUT SCH ×4 (05:56→23:24)
[2018-01-08 06:12] LABS: BASOPHILS % 0.1 % (0.0-2.0); EOSINOPHILS % 0.4 % (0.0-5.0); HEMATOCRIT. 28.7 % (36.0-48.0); HEMOGLOBIN. 9.2 g/dL (12.0-16.0); LYMPHOCYTES % 8.6 % (20.0-50.0); MEAN CORPUSCULAR HEMOGLOBIN 27.8 pg (28.0-32.0); MEAN CORPUSCULAR VOLUME 86.9 fL (81.0-99.0); MEAN PLATELET VOLUME 9.6 fl (7.4-10.4); MONOCYTES % 3.2 % (2.0-8.0); NEUTROPHILS % 87.7 % (40.0-76.0); PLATELET 181 x1000/uL (130-400); RED CELL DISTRIBUTION WIDTH 18.2 % (11.6-14.6)
[2018-01-08 07:38] LABS: PHOSPHORUS 3.6 mg/dL (2.5-4.9)
[2018-01-08 08:22] LABS: BG BASE EXCESS -3.5 mmol/L (-2.0-2.0); BG CARBOXYHEMOGLOBIN 0.4 % (0.5-1.5); BG DEOXYHEMOGLOBIN 5.9 % (0.0-5.0); BG FRACTION INSPIRED OXYGEN 35; BG HCO3 ACT 19.7 mmol/L (22.0-26.0); BG METHEMOGLOBIN 0.2 % (0.0-1.5); BG OXYGEN SATURATION 94.1 % (92.0-98.5); BG OXYHEMOGLOBIN 93.5 % (94.0-97.0); BG PCO2 29.1 mmHg (35.0-45.0); BG PH 7.448 (7.350-7.450); BG PO2 73.9 mmHg (75.0-100.0); BG SAMPLE SITE RIGHT BRACHIAL; BG TIDAL VOLUME(mL) 600 mL; BG TOTAL HEMOGLOBIN 9.9 g/dL (12.0-18.0); BG VENT MODE VENT - A/C; BG VENT RATE 18 set
[2018-01-08] MEDS: DOCUSATE SODIUM SUGAR FREE 100MG/10ML UDC NG SCH ×2 (09:00→09:42)
[2018-01-08] MEDS: PANTOPRAZOLE SODIUM 40 MG/VIAL IV SCH (09:09)
[2018-01-08] MEDS: TRIHEXYPHENIDYL HCL 5 MG TABLET NG SCH ×2 (09:43→20:19)
[2018-01-08] MEDS: FLUPHENAZINE HCL 10 MG TABLET NG SCH ×2 (09:43→20:18)
[2018-01-08] MEDS ORDERED: KCL 20MEQ/100ML PREMIX 100 ML IV NR ×2 (10:00→13:00)
[2018-01-08] MEDS: INSULIN GLARGINE UD 100 UNITS/ML SYR SUBCUT SCH ×2 (10:00→22:44)
[2018-01-08] MEDS ORDERED: LORAZEPAM 2MG/ML CPJ IV PRN ×2 (10:30→18:30)
[2018-01-08] MEDS: VENLAFAXINE HCL 50MG TABLET PO SCH ×2 (12:33→20:19)
[2018-01-08] MEDS ORDERED: HYDRALAZINE 20MG/ML VIAL IV PRN (13:45)
[2018-01-09] VITALS (12 sets, daily range): BP systolic 110–181; BP diastolic 70–120
[2018-01-09] MEDS: IPRATROPIUM/ALBUTEROL 0.5-3(2.5)MG/3ML NEB HHN SCH ×5 (00:15→16:19)
[2018-01-09] MEDS: METOCLOPRAMIDE HCL 10MG/2ML VIAL IV SCH ×3 (05:40→21:55)
[2018-01-09 05:41] LABS: HEMATOCRIT. 28.5 % (36.0-48.0); HEMOGLOBIN. 9.3 g/dL (12.0-16.0); MEAN CORPUSCULAR HEMOGLOBIN 28.4 pg (28.0-32.0); MEAN CORPUSCULAR VOLUME 87.1 fL (81.0-99.0); MEAN PLATELET VOLUME 9.3 fl (7.4-10.4); PLATELET 170 x1000/uL (130-400); RED BLOOD CELL COUNT 3.27 mill/uL (4.2-5.4); RED CELL DISTRIBUTION WIDTH 18.9 % (11.6-14.6)
[2018-01-09] MEDS: INSULIN LISPRO 100 UNITS/ML SUBCUT SCH ×3 (05:47→17:32)
[2018-01-09] MEDS: POTASSIUM CHLORIDE INJ 40 MEQ in DEXT 5%/0.2% NACL 1,000 ML IV SCH ×2 (05:59→22:03)
[2018-01-09 06:07] LABS: PHOSPHORUS 3.8 mg/dL (2.5-4.9)
[2018-01-09] MEDS: TRIHEXYPHENIDYL HCL 5 MG TABLET NG SCH ×2 (09:31→20:30)
[2018-01-09] MEDS: PANTOPRAZOLE SODIUM 40 MG/VIAL IV SCH (09:31)
[2018-01-09] MEDS: FLUPHENAZINE HCL 10 MG TABLET NG SCH ×2 (09:32→21:55)
[2018-01-09] MEDS: INSULIN GLARGINE UD 100 UNITS/ML SYR SUBCUT SCH ×2 (09:33→22:02)
[2018-01-09] MEDS: VENLAFAXINE HCL 50MG TABLET PO SCH ×2 (09:35→20:30)
[2018-01-09 09:53] LABS: BG BASE EXCESS -3.1 mmol/L (-2.0-2.0); BG CARBOXYHEMOGLOBIN 0.3 % (0.5-1.5); BG DEOXYHEMOGLOBIN 4.5 % (0.0-5.0); BG FRACTION INSPIRED OXYGEN 50; BG HCO3 ACT 20.2 mmol/L (22.0-26.0); BG METHEMOGLOBIN 0.1 % (0.0-1.5); BG OXYGEN SATURATION 95.5 % (92.0-98.5); BG OXYHEMOGLOBIN 95.1 % (94.0-97.0); BG PCO2 29.8 mmHg (35.0-45.0); BG PH 7.448 (7.350-7.450); BG PO2 80.7 mmHg (75.0-100.0); BG SAMPLE SITE RIGHT RADIAL; BG TIDAL VOLUME(mL) 600 mL; BG TOTAL HEMOGLOBIN 9.9 g/dL (12.0-18.0); BG VENT MODE VENT - A/C; BG VENT RATE 18 set
[2018-01-09 10:38] LABS: PLATELET ESTIMATE NORMAL
[2018-01-09] MEDS: BLOOD SUGAR DIAGNOSTIC STRIP TEST SCH ×2 (12:44→17:11)
[2018-01-09] MEDS: MORPHINE SULFATE 4 MG/ML CPJ (NOT FOR IM USE) IV PRN ×2 (13:39→18:46)
[2018-01-09] MEDS ORDERED: METOCLOPRAMIDE HCL 10MG/2ML VIAL IV SCH (14:00)
[2018-01-09] MEDS: AMLODIPINE 2.5MG TABLET NG SCH ×2 (15:13→21:00)
[2018-01-09] MEDS: LORAZEPAM 2MG/ML CPJ IV PRN (15:53)
[2018-01-09] MEDS: ALBUTEROL (0.083%) 2.5MG/3ML NEB HHN PRN (17:32)
[2018-01-09] MEDS: ONDANSETRON HCL 4MG/2ML INJ IV PRN (20:31)
[2018-01-10] VITALS (13 sets, daily range): BP systolic 114–154; BP diastolic 71–90
[2018-01-10] MEDS: BLOOD SUGAR DIAGNOSTIC STRIP TEST SCH ×5 (00:35→23:54)
[2018-01-10] MEDS: INSULIN LISPRO 100 UNITS/ML SUBCUT SCH ×4 (00:37→23:54)
[2018-01-10] MEDS: METOCLOPRAMIDE HCL 10MG/2ML VIAL IV SCH ×3 (05:48→21:18)
[2018-01-10 06:12] LABS: BASOPHILS % 0.1 % (0.0-2.0); EOSINOPHILS % 0.4 % (0.0-5.0); HEMATOCRIT. 30.5 % (36.0-48.0); HEMOGLOBIN. 9.6 g/dL (12.0-16.0); LYMPHOCYTES % 7.9 % (20.0-50.0); MEAN CORPUSCULAR HEMOGLOBIN 27.8 pg (28.0-32.0); MEAN CORPUSCULAR VOLUME 88.8 fL (81.0-99.0); MEAN PLATELET VOLUME 9.3 fl (7.4-10.4); MONOCYTES % 2.9 % (2.0-8.0); NEUTROPHILS % 88.7 % (40.0-76.0); PLATELET 145 x1000/uL (130-400); RED BLOOD CELL COUNT 3.44 mill/uL (4.2-5.4)
[2018-01-10] MEDS: ALBUTEROL (0.083%) 2.5MG/3ML NEB HHN PRN (06:47)
[2018-01-10 07:05] LABS: PHOSPHORUS 4.4 mg/dL (2.5-4.9)
[2018-01-10] MEDS: LORAZEPAM 2MG/ML CPJ IV PRN ×2 (07:12→13:20)
[2018-01-10] MEDS: IPRATROPIUM/ALBUTEROL 0.5-3(2.5)MG/3ML NEB HHN SCH ×4 (07:38→20:21)
[2018-01-10] MEDS: VENLAFAXINE HCL 50MG TABLET PO SCH ×2 (08:29→21:18)
[2018-01-10] MEDS: FLUPHENAZINE HCL 10 MG TABLET NG SCH ×2 (08:29→21:18)
[2018-01-10] MEDS: TRIHEXYPHENIDYL HCL 5 MG TABLET NG SCH ×2 (08:29→21:18)
[2018-01-10] MEDS: DOCUSATE SODIUM SUGAR FREE 100MG/10ML UDC NG SCH (08:30)
[2018-01-10] MEDS: AMLODIPINE 2.5MG TABLET NG SCH ×2 (08:30→21:19)
[2018-01-10] MEDS: PANTOPRAZOLE SODIUM 40 MG/VIAL IV SCH (08:30)
[2018-01-10] MEDS: MORPHINE SULFATE 4 MG/ML CPJ (NOT FOR IM USE) IV PRN ×3 (09:56→19:23)
[2018-01-10] MEDS: INSULIN GLARGINE UD 100 UNITS/ML SYR SUBCUT SCH ×2 (09:57→23:54)
[2018-01-10] MEDS: ACETAMINOPHEN 325MG TABLET PO PRN (10:05)
[2018-01-10] MEDS: DEXT 5% WATER + KCL 20MEQ/L 1,000 ML IV SCH (17:06)
[2018-01-10] MEDS: LACTULOSE 20G/30ML UDC PO PRN (21:18)
[2018-01-11] VITALS (14 sets, daily range): BP systolic 110–181; BP diastolic 75–112
[2018-01-11] MEDS: IPRATROPIUM/ALBUTEROL 0.5-3(2.5)MG/3ML NEB HHN SCH ×6 (00:37→20:14)
[2018-01-11] MEDS: MORPHINE SULFATE 4 MG/ML CPJ (NOT FOR IM USE) IV PRN ×2 (03:16→09:46)
[2018-01-11] MEDS: INSULIN LISPRO 100 UNITS/ML SUBCUT SCH ×3 (06:00→17:56)
[2018-01-11] MEDS: BLOOD SUGAR DIAGNOSTIC STRIP TEST SCH ×3 (06:04→17:54)
[2018-01-11] MEDS: DEXT 5% WATER + KCL 20MEQ/L 1,000 ML IV SCH (06:04)
[2018-01-11] MEDS: METOCLOPRAMIDE HCL 10MG/2ML VIAL IV SCH ×3 (06:11→21:58)
[2018-01-11 06:58] LABS: HEMATOCRIT. 32.1 % (36.0-48.0); HEMOGLOBIN. 10.1 g/dL (12.0-16.0); MEAN CORPUSCULAR HEMOGLOBIN 28.3 pg (28.0-32.0); MEAN CORPUSCULAR VOLUME 90.1 fL (81.0-99.0); MEAN PLATELET VOLUME 9.3 fl (7.4-10.4); PLATELET 103 x1000/uL (130-400); RED BLOOD CELL COUNT 3.56 mill/uL (4.2-5.4); RED CELL DISTRIBUTION WIDTH 20.4 % (11.6-14.6)
[2018-01-11] MEDS: DEXTROSE 5% WATER 1,000 ML IV SCH ×2 (07:00→10:25)
[2018-01-11 07:12] LABS: PHOSPHORUS 4.8 mg/dL (2.5-4.9)
[2018-01-11] MEDS: DOCUSATE SODIUM SUGAR FREE 100MG/10ML UDC NG SCH ×2 (08:11→08:16)
[2018-01-11] MEDS: PANTOPRAZOLE SODIUM 40 MG/VIAL IV SCH (08:11)
[2018-01-11] MEDS: TRIHEXYPHENIDYL HCL 5 MG TABLET NG SCH ×2 (08:12→22:02)
[2018-01-11] MEDS: AMLODIPINE 2.5MG TABLET NG SCH ×2 (08:12→22:03)
[2018-01-11] MEDS: FLUPHENAZINE HCL 10 MG TABLET NG SCH ×2 (08:12→22:02)
[2018-01-11] MEDS: VENLAFAXINE HCL 50MG TABLET PO SCH ×2 (08:12→22:04)
[2018-01-11] MEDS: LORAZEPAM 2MG/ML CPJ IV PRN ×3 (08:49→17:50)
[2018-01-11] MEDS: NICOTINE 14MG PATCH TD SCH (10:53)
[2018-01-11] MEDS: INSULIN GLARGINE UD 100 UNITS/ML SYR SUBCUT SCH ×2 (12:06→22:11)
[2018-01-11] MEDS: METOPROLOL TARTRATE 25MG TABLET PO SCH ×2 (13:35→22:02)
[2018-01-11 13:37] LABS: PLATELET ESTIMATE SLIGHTLY DECREASED
[2018-01-11] MEDS: PIPERACILLIN/TAZ 3.375G PREMIX 50 ML IV SCH (16:45)
[2018-01-11] MEDS ORDERED: VANCOMYCIN 1500MG in DEXTROSE 5% WATER 250ML IV NR (17:00)
[2018-01-11 20:32] LABS: CLARITY URINE CLEAR (CLEAR); COLOR URINE YELLOW (YELLOW); KETONES URINE NEGATIVE (NEGATIVE); LEUKOCYTE ESTERASE URINE 1+ (NEGATIVE); NITRITE URINE NEGATIVE (NEGATIVE); OCCULT BLOOD URINE 2+ (NEGATIVE); PH URINE 5.5 (4.5-8.0); PROTEIN URINE 1+ (NEGATIVE); UROBILINOGEN URINE 0.2 E.U./dL (0.2-1.0)
[2018-01-11] MEDS ORDERED: QUETIAPINE FUMARATE 100MG TABLET PO SCH (21:00)
[2018-01-11] MEDS: LACTULOSE 20G/30ML UDC PO PRN (21:58)
[2018-01-12] VITALS (11 sets, daily range): BP systolic 93–133; BP diastolic 55–83
[2018-01-12] MEDS: IPRATROPIUM/ALBUTEROL 0.5-3(2.5)MG/3ML NEB HHN SCH ×5 (00:10→20:19)
[2018-01-12] MEDS: PIPERACILLIN/TAZ 3.375G PREMIX 50 ML IV SCH ×3 (03:19→16:20)
[2018-01-12] MEDS: INSULIN LISPRO 100 UNITS/ML SUBCUT SCH ×5 (06:00→23:42)
[2018-01-12] MEDS: BLOOD SUGAR DIAGNOSTIC STRIP TEST SCH ×5 (06:57→23:42)
[2018-01-12] MEDS: METOCLOPRAMIDE HCL 10MG/2ML VIAL IV SCH ×3 (06:58→21:33)
[2018-01-12 07:15] LABS: INR 1.1; PARTIAL THROMBOPLASTIN TIME 31.3 sec (23.4-31.0)
[2018-01-12 07:24] LABS: HEMATOCRIT. 24.9 % (36.0-48.0); HEMOGLOBIN. 7.9 g/dL (12.0-16.0); MEAN CORPUSCULAR HEMOGLOBIN 28.3 pg (28.0-32.0); MEAN CORPUSCULAR VOLUME 89.7 fL (81.0-99.0); MEAN PLATELET VOLUME 9.9 fl (7.4-10.4); PLATELET 60 x1000/uL (130-400); RED BLOOD CELL COUNT 2.78 mill/uL (4.2-5.4); RED CELL DISTRIBUTION WIDTH 20.2 % (11.6-14.6)
[2018-01-12] MEDS: DOCUSATE SODIUM SUGAR FREE 100MG/10ML UDC NG SCH (08:23)
[2018-01-12] MEDS: METOPROLOL TARTRATE 25MG TABLET PO SCH ×2 (08:24→21:33)
[2018-01-12 08:26] LABS: PHOSPHORUS 4.7 mg/dL (2.5-4.9)
[2018-01-12] MEDS: PANTOPRAZOLE SODIUM 40 MG/VIAL IV SCH (08:30)
[2018-01-12] MEDS: NICOTINE 14MG PATCH TD SCH (08:30)
[2018-01-12] MEDS: FLUPHENAZINE HCL 10 MG TABLET NG SCH ×2 (08:30→21:33)
[2018-01-12] MEDS: TRIHEXYPHENIDYL HCL 5 MG TABLET NG SCH ×2 (08:30→21:32)
[2018-01-12] MEDS: VENLAFAXINE HCL 50MG TABLET PO SCH ×2 (08:30→21:33)
[2018-01-12] MEDS ORDERED: AMLODIPINE 2.5MG TABLET NG SCH (09:00)
[2018-01-12] MEDS: INSULIN GLARGINE UD 100 UNITS/ML SYR SUBCUT SCH (10:00)
[2018-01-12] MEDS ORDERED: BACTERIOSTATIC SODIUM CHLORIDE 0.9% 30ML VIAL IJ ONE (10:56)
[2018-01-12 11:36] LABS: PLATELET ESTIMATE DECREASED
[2018-01-12] MEDS: DEXTROSE 50% WATER 50ML SYRINGE IV PRN ×2 (12:10→16:23)
[2018-01-12] MEDS: LORAZEPAM 2MG/ML CPJ IV PRN (12:32)
[2018-01-12] MEDS ORDERED: MIDAZOLAM HCL 5 MG/5 ML VIAL IV PRN (14:56)
[2018-01-12] MEDS: ALBUTEROL (0.083%) 2.5MG/3ML NEB HHN PRN (16:11)
[2018-01-12] MEDS ORDERED: FENTANYL CITRATE/PF 50MCG/ML 2ML VIAL ONE (16:43)
[2018-01-12] MEDS ORDERED: MIDAZOLAM HCL 5 MG/5 ML VIAL ONE (16:43)
[2018-01-12] MEDS: VANCOMYCIN 1 G PREMIX 200 ML IV SCH (17:54)
[2018-01-12] MEDS: DEXTROSE 5% WATER 1,000 ML IV SCH (18:26)
[2018-01-12] MEDS: BUDESONIDE 0.5MG/2ML NEB HHN SCH (20:23)
[2018-01-12] MEDS ORDERED: DEXTROSE 50% WATER 50ML SYRINGE IV PRN (21:15)
[2018-01-12] MEDS: QUETIAPINE FUMARATE 100MG TABLET PO SCH (21:32)
[2018-01-12] MEDS ORDERED: INSULIN GLARGINE UD 100 UNITS/ML SYR SUBCUT SCH (22:30)
[2018-01-13] VITALS (12 sets, daily range): BP systolic 83–172; BP diastolic 54–143
[2018-01-13] MEDS: PIPERACILLIN/TAZ 3.375G PREMIX 50 ML IV SCH ×3 (00:03→17:33)
[2018-01-13] MEDS: DEXTROSE 5% WATER 1,000 ML IV SCH ×2 (00:04→09:34)
[2018-01-13] MEDS: IPRATROPIUM/ALBUTEROL 0.5-3(2.5)MG/3ML NEB HHN SCH ×6 (00:04→19:52)
[2018-01-13] MEDS: LORAZEPAM 2MG/ML CPJ IV PRN ×3 (02:25→13:22)
[2018-01-13] MEDS: INSULIN LISPRO 100 UNITS/ML SUBCUT SCH ×4 (05:09→23:21)
[2018-01-13] MEDS: BLOOD SUGAR DIAGNOSTIC STRIP TEST SCH ×3 (05:09→17:35)
[2018-01-13] MEDS: METOCLOPRAMIDE HCL 10MG/2ML VIAL IV SCH ×3 (05:18→22:15)
[2018-01-13 07:06] LABS: HEMATOCRIT. 24.8 % (36.0-48.0); HEMOGLOBIN. 7.9 g/dL (12.0-16.0); MEAN CORPUSCULAR HEMOGLOBIN 28.2 pg (28.0-32.0); MEAN CORPUSCULAR VOLUME 88.4 fL (81.0-99.0); MEAN PLATELET VOLUME 10.4 fl (7.4-10.4); PLATELET 54 x1000/uL (130-400)
[2018-01-13 07:12] LABS: PHOSPHORUS 4.1 mg/dL (2.5-4.9)
[2018-01-13] MEDS: VENLAFAXINE HCL 50MG TABLET PO SCH ×2 (08:48→21:00)
[2018-01-13] MEDS: TRIHEXYPHENIDYL HCL 5 MG TABLET NG SCH ×2 (08:48→21:56)
[2018-01-13] MEDS: FLUPHENAZINE HCL 10 MG TABLET NG SCH ×2 (08:49→21:58)
[2018-01-13] MEDS: PANTOPRAZOLE SODIUM 40 MG/VIAL IV SCH (08:49)
[2018-01-13] MEDS: DOCUSATE SODIUM SUGAR FREE 100MG/10ML UDC NG SCH (08:53)
[2018-01-13] MEDS: NICOTINE 14MG PATCH TD SCH (09:36)
[2018-01-13] MEDS: NYSTATIN POWDER 15GM TOP SCH ×2 (09:40→17:35)
[2018-01-13] MEDS: BUDESONIDE 0.5MG/2ML NEB HHN SCH ×2 (09:42→19:52)
[2018-01-13] MEDS: MORPHINE SULFATE 4 MG/ML CPJ (NOT FOR IM USE) IV PRN ×2 (10:33→14:41)
[2018-01-13] MEDS: INSULIN GLARGINE UD 100 UNITS/ML SYR SUBCUT SCH ×2 (10:42→23:18)
[2018-01-13] MEDS: METOPROLOL TARTRATE 25MG TABLET PO SCH ×2 (10:57→21:00)
[2018-01-13 11:33] LABS: PLATELET ESTIMATE DECREASED
[2018-01-13] MEDS ORDERED: CLONIDINE 0.2MG TABLET GT SCH (12:30)
[2018-01-13] MEDS: DILTIAZEM HCL 60MG TABLET GT SCH ×2 (13:19→21:53)
[2018-01-13 13:33] LABS: BG BASE EXCESS -3.6 mmol/L (-2.0-2.0); BG CARBOXYHEMOGLOBIN 0.7 % (0.5-1.5); BG DEOXYHEMOGLOBIN 1.7 % (0.0-5.0); BG FRACTION INSPIRED OXYGEN 90; BG HCO3 ACT 22.6 mmol/L (22.0-26.0); BG METHEMOGLOBIN 0.4 % (0.0-1.5); BG OXYGEN SATURATION 98.3 % (92.0-98.5); BG OXYHEMOGLOBIN 97.2 % (94.0-97.0); BG PCO2 46.3 mmHg (35.0-45.0); BG PH 7.307 (7.350-7.450); BG PO2 133.5 mmHg (75.0-100.0); BG SAMPLE SITE LEFT BRACHIAL; BG TIDAL VOLUME(mL) 600 mL; BG TOTAL HEMOGLOBIN 9.4 g/dL (12.0-18.0); BG VENT MODE VENT - A/C; BG VENT RATE 18 set
[2018-01-13 14:57] LABS: BG BASE EXCESS -6.3 mmol/L (-2.0-2.0); BG CARBOXYHEMOGLOBIN 0.2 % (0.5-1.5); BG DEOXYHEMOGLOBIN 3.1 % (0.0-5.0); BG FRACTION INSPIRED OXYGEN 100; BG HCO3 ACT 23.6 mmol/L (22.0-26.0); BG METHEMOGLOBIN 0.6 % (0.0-1.5); BG OXYGEN SATURATION 96.9 % (92.0-98.5); BG OXYHEMOGLOBIN 96.1 % (94.0-97.0); BG PCO2 73.6 mmHg (35.0-45.0); BG PH 7.124 (7.350-7.450); BG PO2 117.6 mmHg (75.0-100.0); BG SAMPLE SITE RIGHT RADIAL; BG TIDAL VOLUME(mL) 500 mL; BG TOTAL HEMOGLOBIN 10.2 g/dL (12.0-18.0); BG VENT MODE VENT - A/C; BG VENT RATE 18 set
[2018-01-13] MEDS ORDERED: SODIUM CHLORIDE 0.9% 250 ML IV ONE (17:00)
[2018-01-13] MEDS: VANCOMYCIN 1 G PREMIX 200 ML IV SCH (17:33)
[2018-01-13 17:36] LABS: BG BASE EXCESS -3.4 mmol/L (-2.0-2.0); BG CARBOXYHEMOGLOBIN 0.2 % (0.5-1.5); BG DEOXYHEMOGLOBIN 0.7 % (0.0-5.0); BG FRACTION INSPIRED OXYGEN 100; BG HCO3 ACT 23.2 mmol/L (22.0-26.0); BG METHEMOGLOBIN 0.8 % (0.0-1.5); BG OXYGEN SATURATION 99.3 % (92.0-98.5); BG OXYHEMOGLOBIN 98.3 % (94.0-97.0); BG PCO2 49.9 mmHg (35.0-45.0); BG PH 7.285 (7.350-7.450); BG PO2 276.2 mmHg (75.0-100.0); BG SAMPLE SITE RIGHT RADIAL; BG TIDAL VOLUME(mL) 600 mL; BG TOTAL HEMOGLOBIN 7.7 g/dL (12.0-18.0); BG VENT MODE VENT - A/C; BG VENT RATE 24 set
[2018-01-13] MEDS ORDERED: SODIUM CHLORIDE 0.9% 500 ML IV ONE (18:45)
[2018-01-13] MEDS ORDERED: SODIUM CHLORIDE 0.9% 250 ML IV NR (19:15)
[2018-01-13] MEDS ORDERED: SODIUM CHLORIDE 0.9% 500 ML IV NR (19:15)
[2018-01-13] MEDS ORDERED: METOPROLOL TARTRATE 25MG TABLET PO SCH (21:00)
[2018-01-13] MEDS: QUETIAPINE FUMARATE 100MG TABLET PO SCH (21:59)
[2018-01-14] VITALS (11 sets, daily range): BP systolic 100–144; BP diastolic 59–95
[2018-01-14] MEDS: IPRATROPIUM/ALBUTEROL 0.5-3(2.5)MG/3ML NEB HHN SCH ×6 (00:01→21:02)
[2018-01-14] MEDS: PIPERACILLIN/TAZ 3.375G PREMIX 50 ML IV SCH ×3 (00:34→17:30)
[2018-01-14] MEDS: BLOOD SUGAR DIAGNOSTIC STRIP TEST SCH ×5 (00:38→23:59)
[2018-01-14] MEDS: DEXTROSE 5% WATER 1,000 ML IV SCH ×2 (00:52→10:04)
[2018-01-14] MEDS: LORAZEPAM 2MG/ML CPJ IV PRN ×5 (04:24→21:24)
[2018-01-14] MEDS: METOCLOPRAMIDE HCL 10MG/2ML VIAL IV SCH ×3 (05:10→23:07)
[2018-01-14] MEDS: DILTIAZEM HCL 60MG TABLET GT SCH ×4 (05:13→23:42)
[2018-01-14 05:57] LABS: HEMOGLOBIN. 7.4 g/dL (12.0-16.0); MEAN CORPUSCULAR VOLUME 90.2 fL (81.0-99.0); MEAN PLATELET VOLUME 10.6 fl (7.4-10.4); PLATELET 65 x1000/uL (130-400); RED BLOOD CELL COUNT 2.66 mill/uL (4.2-5.4); RED CELL DISTRIBUTION WIDTH 19.9 % (11.6-14.6)
[2018-01-14] MEDS: INSULIN LISPRO 100 UNITS/ML SUBCUT SCH ×3 (06:25→17:58)
[2018-01-14] MEDS: BUDESONIDE 0.5MG/2ML NEB HHN SCH ×2 (07:56→21:02)
[2018-01-14] MEDS: METOPROLOL TARTRATE 25MG TABLET PO SCH ×2 (09:00→21:00)
[2018-01-14] MEDS: PANTOPRAZOLE SODIUM 40 MG/VIAL IV SCH (09:06)
[2018-01-14] MEDS: DOCUSATE SODIUM SUGAR FREE 100MG/10ML UDC NG SCH (09:07)
[2018-01-14] MEDS: VENLAFAXINE HCL 50MG TABLET PO SCH ×2 (09:07→21:00)
[2018-01-14] MEDS: TRIHEXYPHENIDYL HCL 5 MG TABLET NG SCH ×2 (09:07→21:13)
[2018-01-14] MEDS: FLUPHENAZINE HCL 10 MG TABLET NG SCH ×2 (09:07→21:00)
[2018-01-14 09:10] LABS: BG BASE EXCESS -6.7 mmol/L (-2.0-2.0); BG CARBOXYHEMOGLOBIN 0.4 % (0.5-1.5); BG DEOXYHEMOGLOBIN 0.7 % (0.0-5.0); BG FRACTION INSPIRED OXYGEN 100; BG HCO3 ACT 19.2 mmol/L (22.0-26.0); BG METHEMOGLOBIN 0.5 % (0.0-1.5); BG OXYGEN SATURATION 99.3 % (92.0-98.5); BG OXYHEMOGLOBIN 98.4 % (94.0-97.0); BG PCO2 40.3 mmHg (35.0-45.0); BG PH 7.296 (7.350-7.450); BG PO2 286.3 mmHg (75.0-100.0); BG SAMPLE SITE LEFT RADIAL; BG TIDAL VOLUME(mL) 600 mL; BG TOTAL HEMOGLOBIN 7.9 g/dL (12.0-18.0); BG VENT MODE VENT - A/C; BG VENT RATE 24 set
[2018-01-14] MEDS: INSULIN GLARGINE UD 100 UNITS/ML SYR SUBCUT SCH (10:03)
[2018-01-14] MEDS: NYSTATIN POWDER 15GM TOP SCH ×2 (10:05→17:29)
[2018-01-14] MEDS: NICOTINE 14MG PATCH TD SCH (10:10)
[2018-01-14] MEDS: METHYLPREDNISOLONE SOD SUCC 125 MG/2 ML VIAL IV SCH ×3 (11:11→23:08)
[2018-01-14 13:50] LABS: PLATELET ESTIMATE DECREASED
[2018-01-14] MEDS: QUETIAPINE FUMARATE 100MG TABLET PO SCH (22:43)
[2018-01-15] VITALS (12 sets, daily range): BP systolic 113–178; BP diastolic 57–102
[2018-01-15] MEDS: INSULIN LISPRO 100 UNITS/ML SUBCUT SCH ×4 (00:06→19:10)
[2018-01-15] MEDS: INSULIN GLARGINE UD 100 UNITS/ML SYR SUBCUT SCH ×3 (00:07→21:15)
[2018-01-15] MEDS: IPRATROPIUM/ALBUTEROL 0.5-3(2.5)MG/3ML NEB HHN SCH ×6 (00:38→20:30)
[2018-01-15] MEDS: DEXTROSE 5% WATER 1,000 ML IV SCH ×2 (04:12→12:18)
[2018-01-15] MEDS: PIPERACILLIN/TAZ 3.375G PREMIX 50 ML IV SCH ×3 (04:36→17:11)
[2018-01-15] MEDS: BLOOD SUGAR DIAGNOSTIC STRIP TEST SCH ×3 (05:54→18:30)
[2018-01-15] MEDS: METOCLOPRAMIDE HCL 10MG/2ML VIAL IV SCH ×3 (06:48→21:14)
[2018-01-15] MEDS: DILTIAZEM HCL 60MG TABLET GT SCH ×3 (06:48→21:17)
[2018-01-15] MEDS: METHYLPREDNISOLONE SOD SUCC 125 MG/2 ML VIAL IV SCH ×3 (06:49→21:14)
[2018-01-15] MEDS: LORAZEPAM 2MG/ML CPJ IV PRN ×4 (06:51→17:01)
[2018-01-15 07:38] LABS: BG BASE EXCESS -7.1 mmol/L (-2.0-2.0); BG DEOXYHEMOGLOBIN 1.2 % (0.0-5.0); BG FRACTION INSPIRED OXYGEN 80; BG HCO3 ACT 18.6 mmol/L (22.0-26.0); BG METHEMOGLOBIN 0.3 % (0.0-1.5); BG OXYGEN SATURATION 98.8 % (92.0-98.5); BG OXYHEMOGLOBIN 98.5 % (94.0-97.0); BG PCO2 38.2 mmHg (35.0-45.0); BG PH 7.306 (7.350-7.450); BG SAMPLE SITE RIGHT RADIAL; BG TIDAL VOLUME(mL) 600 mL; BG TOTAL HEMOGLOBIN 9.8 g/dL (12.0-18.0); BG VENT MODE VENT - A/C; BG VENT RATE 24 set
[2018-01-15] MEDS: BUDESONIDE 0.5MG/2ML NEB HHN SCH (07:40)
[2018-01-15 09:34] LABS: HEMATOCRIT. 24.2 % (36.0-48.0); HEMOGLOBIN. 7.7 g/dL (12.0-16.0); MEAN CORPUSCULAR HEMOGLOBIN 28.4 pg (28.0-32.0); MEAN CORPUSCULAR VOLUME 88.9 fL (81.0-99.0); MEAN PLATELET VOLUME 11.1 fl (7.4-10.4); PLATELET 81 x1000/uL (130-400); RED BLOOD CELL COUNT 2.73 mill/uL (4.2-5.4); RED CELL DISTRIBUTION WIDTH 19.9 % (11.6-14.6)
[2018-01-15 09:49] LABS: PHOSPHORUS 4.2 mg/dL (2.5-4.9)
[2018-01-15] MEDS: NICOTINE 14MG PATCH TD SCH (10:01)
[2018-01-15] MEDS: FLUPHENAZINE HCL 10 MG TABLET NG SCH ×2 (10:02→21:14)
[2018-01-15] MEDS: PANTOPRAZOLE SODIUM 40 MG/VIAL IV SCH (10:02)
[2018-01-15] MEDS: VENLAFAXINE HCL 50MG TABLET PO SCH ×2 (10:02→21:14)
[2018-01-15] MEDS: TRIHEXYPHENIDYL HCL 5 MG TABLET NG SCH ×2 (10:02→21:14)
[2018-01-15] MEDS: DOCUSATE SODIUM SUGAR FREE 100MG/10ML UDC NG SCH (10:02)
[2018-01-15 10:05] LABS: PLATELET ESTIMATE DECREASED
[2018-01-15] MEDS: NYSTATIN POWDER 15GM TOP SCH ×2 (10:08→17:03)
[2018-01-15] MEDS: METOPROLOL TARTRATE 25MG TABLET PO SCH ×2 (10:51→21:00)
[2018-01-15] MEDS ORDERED: QUETIAPINE FUMARATE 50MG TABLET PO NR (11:30)
[2018-01-15] MEDS ORDERED: INSULIN GLARGINE UD 100 UNITS/ML SYR SUBCUT SCH (11:30)
[2018-01-15] MEDS: MORPHINE SULFATE 4 MG/ML CPJ (NOT FOR IM USE) IV PRN (13:18)
[2018-01-15] MEDS: CLONIDINE 0.1MG TABLET GT PRN (15:47)
[2018-01-15] MEDS: QUETIAPINE FUMARATE 50MG TABLET PO SCH (21:14)
[2018-01-16] VITALS (10 sets, daily range): BP systolic 107–173; BP diastolic 60–116
[2018-01-16] MEDS: BLOOD SUGAR DIAGNOSTIC STRIP TEST SCH ×4 (00:31→16:54)
[2018-01-16] MEDS: PIPERACILLIN/TAZ 3.375G PREMIX 50 ML IV SCH ×3 (00:49→17:04)
[2018-01-16] MEDS: INSULIN LISPRO 100 UNITS/ML SUBCUT SCH ×4 (00:50→17:05)
[2018-01-16] MEDS: IPRATROPIUM/ALBUTEROL 0.5-3(2.5)MG/3ML NEB HHN SCH ×7 (00:57→23:40)
[2018-01-16] MEDS: LORAZEPAM 2MG/ML CPJ IV PRN ×5 (06:27→22:21)
[2018-01-16] MEDS: METOCLOPRAMIDE HCL 10MG/2ML VIAL IV SCH ×3 (06:27→22:21)
[2018-01-16] MEDS: METHYLPREDNISOLONE SOD SUCC 125 MG/2 ML VIAL IV SCH ×3 (06:28→22:21)
[2018-01-16] MEDS: CLONIDINE 0.1MG TABLET GT PRN (06:47)
[2018-01-16] MEDS: DILTIAZEM HCL 60MG TABLET GT SCH ×3 (06:47→22:00)
[2018-01-16 07:07] LABS: HEMATOCRIT. 21.5 % (36.0-48.0); HEMOGLOBIN. 7.1 g/dL (12.0-16.0); MEAN CORPUSCULAR VOLUME 88.4 fL (81.0-99.0); MEAN PLATELET VOLUME 10.9 fl (7.4-10.4); PLATELET 104 x1000/uL (130-400); RED BLOOD CELL COUNT 2.43 mill/uL (4.2-5.4); RED CELL DISTRIBUTION WIDTH 19.3 % (11.6-14.6)
[2018-01-16 07:08] LABS: PHOSPHORUS 4.4 mg/dL (2.5-4.9)
[2018-01-16] MEDS: MORPHINE SULFATE 4 MG/ML CPJ (NOT FOR IM USE) IV PRN (07:35)
[2018-01-16] MEDS ORDERED: CLONIDINE 0.2MG TABLET PO PRN (08:00)
[2018-01-16 08:28] LABS: BG CARBOXYHEMOGLOBIN 0.3 % (0.5-1.5); BG DEOXYHEMOGLOBIN 15.3 % (0.0-5.0); BG FRACTION INSPIRED OXYGEN 80; BG HCO3 ACT 21.2 mmol/L (22.0-26.0); BG METHEMOGLOBIN 0.4 % (0.0-1.5); BG OXYGEN SATURATION 84.6 % (92.0-98.5); BG PH 7.245 (7.350-7.450); BG PO2 56.2 mmHg (75.0-100.0); BG SAMPLE SITE RIGHT RADIAL; BG TIDAL VOLUME(mL) 550 mL; BG TOTAL HEMOGLOBIN 9.3 g/dL (12.0-18.0); BG VENT MODE VENT - A/C; BG VENT RATE 24 set
[2018-01-16] MEDS: PANTOPRAZOLE SODIUM 40 MG/VIAL IV SCH (08:32)
[2018-01-16] MEDS: NICOTINE 14MG PATCH TD SCH (08:33)
[2018-01-16] MEDS: DOCUSATE SODIUM SUGAR FREE 100MG/10ML UDC NG SCH (08:33)
[2018-01-16] MEDS: FLUPHENAZINE HCL 10 MG TABLET NG SCH ×2 (08:33→20:09)
[2018-01-16] MEDS: QUETIAPINE FUMARATE 50MG TABLET PO SCH (08:33)
[2018-01-16] MEDS: VENLAFAXINE HCL 50MG TABLET PO SCH (08:33)
[2018-01-16] MEDS: TRIHEXYPHENIDYL HCL 5 MG TABLET NG SCH ×2 (08:33→20:09)
[2018-01-16] MEDS: METOPROLOL TARTRATE 25MG TABLET PO SCH ×2 (08:34→20:09)
[2018-01-16] MEDS ORDERED: HALOPERIDOL 5MG TABLET PO NR (08:45)
[2018-01-16] MEDS: DEXTROSE 5% WATER 1,000 ML IV SCH (08:49)
[2018-01-16] MEDS: NYSTATIN POWDER 15GM TOP SCH ×2 (08:49→17:05)
[2018-01-16] MEDS: QUETIAPINE FUMARATE 100MG TABLET PEG SCH ×2 (08:52→20:09)
[2018-01-16] MEDS: INSULIN GLARGINE UD 100 UNITS/ML SYR SUBCUT SCH ×2 (10:55→22:22)
[2018-01-16 13:10] LABS: PLATELET ESTIMATE SLIGHTLY DECREASED
[2018-01-16] MEDS ORDERED: SODIUM BICARBONATE 100 MEQ in DEXT 5%/0.2% NACL 1,000 ML IV ONE (18:00)
[2018-01-17] VITALS (9 sets, daily range): BP systolic 103–154; BP diastolic 66–84
[2018-01-17] MEDS: BLOOD SUGAR DIAGNOSTIC STRIP TEST SCH ×4 (00:17→18:20)
[2018-01-17] MEDS: PIPERACILLIN/TAZ 3.375G PREMIX 50 ML IV SCH ×3 (00:22→18:20)
[2018-01-17] MEDS: INSULIN LISPRO 100 UNITS/ML SUBCUT SCH ×4 (00:23→18:23)
[2018-01-17] MEDS: IPRATROPIUM/ALBUTEROL 0.5-3(2.5)MG/3ML NEB HHN SCH ×5 (03:57→20:17)
[2018-01-17] MEDS: METHYLPREDNISOLONE SOD SUCC 125 MG/2 ML VIAL IV SCH (05:25)
[2018-01-17] MEDS: LORAZEPAM 2MG/ML CPJ IV PRN ×4 (05:25→22:13)
[2018-01-17] MEDS: METOCLOPRAMIDE HCL 10MG/2ML VIAL IV SCH ×3 (05:25→22:13)
[2018-01-17] MEDS: DILTIAZEM HCL 60MG TABLET GT SCH ×3 (05:27→21:30)
[2018-01-17 08:03] LABS: HEMOGLOBIN. 7.1 g/dL (12.0-16.0); MEAN CORPUSCULAR HEMOGLOBIN 28.5 pg (28.0-32.0); MEAN PLATELET VOLUME 10.7 fl (7.4-10.4); PLATELET 121 x1000/uL (130-400); RED CELL DISTRIBUTION WIDTH 19.1 % (11.6-14.6)
[2018-01-17] MEDS: TRIHEXYPHENIDYL HCL 5 MG TABLET NG SCH ×2 (08:37→21:29)
[2018-01-17] MEDS: PANTOPRAZOLE SODIUM 40 MG/VIAL IV SCH (08:37)
[2018-01-17] MEDS: DOCUSATE SODIUM SUGAR FREE 100MG/10ML UDC NG SCH (08:37)
[2018-01-17] MEDS: FLUPHENAZINE HCL 10 MG TABLET NG SCH ×2 (08:38→21:29)
[2018-01-17] MEDS: QUETIAPINE FUMARATE 100MG TABLET PEG SCH ×2 (08:38→21:30)
[2018-01-17] MEDS: NICOTINE 14MG PATCH TD SCH (08:38)
[2018-01-17] MEDS: METOPROLOL TARTRATE 25MG TABLET PO SCH ×2 (08:38→21:29)
[2018-01-17] MEDS: NYSTATIN POWDER 15GM TOP SCH ×2 (08:39→18:29)
[2018-01-17] MEDS: INSULIN GLARGINE UD 100 UNITS/ML SYR SUBCUT SCH ×2 (10:44→22:14)
[2018-01-17 11:08] LABS: BG CARBOXYHEMOGLOBIN 0.6 % (0.5-1.5); BG DEOXYHEMOGLOBIN 0.5 % (0.0-5.0); BG FRACTION INSPIRED OXYGEN 80; BG METHEMOGLOBIN 0.4 % (0.0-1.5); BG OXYGEN SATURATION 99.5 % (92.0-98.5); BG OXYHEMOGLOBIN 98.5 % (94.0-97.0); BG PCO2 39.1 mmHg (35.0-45.0); BG PH 7.368 (7.350-7.450); BG PO2 279.8 mmHg (75.0-100.0); BG SAMPLE SITE RIGHT RADIAL; BG TIDAL VOLUME(mL) 550 mL; BG TOTAL HEMOGLOBIN 7.3 g/dL (12.0-18.0); BG VENT MODE VENT - A/C; BG VENT RATE 24 set
[2018-01-17 11:36] LABS: PHOSPHORUS 4.2 mg/dL (2.5-4.9)
[2018-01-17] MEDS ORDERED: SODIUM BICARBONATE 100 MEQ in DEXT 5%/0.2% NACL 1,000 ML IV ONE ×2 (13:15→14:00)
[2018-01-17 15:52] LABS: PLATELET ESTIMATE SLIGHTLY DECREASED
[2018-01-17] MEDS: ALBUTEROL (0.083%) 2.5MG/3ML NEB HHN PRN (16:20)
[2018-01-18] VITALS (12 sets, daily range): BP systolic 99–155; BP diastolic 66–99
[2018-01-18] MEDS: INSULIN LISPRO 100 UNITS/ML SUBCUT SCH ×4 (00:07→17:20)
[2018-01-18] MEDS: BLOOD SUGAR DIAGNOSTIC STRIP TEST SCH ×4 (00:07→17:01)
[2018-01-18] MEDS: PIPERACILLIN/TAZ 3.375G PREMIX 50 ML IV SCH ×3 (00:09→16:56)
[2018-01-18] MEDS: LORAZEPAM 2MG/ML CPJ IV PRN ×4 (00:41→18:02)
[2018-01-18] MEDS: IPRATROPIUM/ALBUTEROL 0.5-3(2.5)MG/3ML NEB HHN SCH ×6 (00:51→20:10)
[2018-01-18] MEDS: METOCLOPRAMIDE HCL 10MG/2ML VIAL IV SCH ×3 (05:33→22:17)
[2018-01-18] MEDS: DILTIAZEM HCL 60MG TABLET GT SCH ×3 (05:34→22:00)
[2018-01-18 06:09] LABS: HEMATOCRIT. 21.9 % (36.0-48.0); HEMOGLOBIN. 7.1 g/dL (12.0-16.0); MEAN CORPUSCULAR HEMOGLOBIN 28.2 pg (28.0-32.0); MEAN CORPUSCULAR VOLUME 87.1 fL (81.0-99.0); MEAN PLATELET VOLUME 10.8 fl (7.4-10.4); PLATELET 130 x1000/uL (130-400); RED BLOOD CELL COUNT 2.52 mill/uL (4.2-5.4); RED CELL DISTRIBUTION WIDTH 19.2 % (11.6-14.6)
[2018-01-18] MEDS: PANTOPRAZOLE SODIUM 40 MG/VIAL IV SCH (08:06)
[2018-01-18] MEDS: DOCUSATE SODIUM SUGAR FREE 100MG/10ML UDC NG SCH (08:06)
[2018-01-18] MEDS: METOPROLOL TARTRATE 25MG TABLET PO SCH (08:07)
[2018-01-18] MEDS: TRIHEXYPHENIDYL HCL 5 MG TABLET NG SCH ×2 (08:07→20:16)
[2018-01-18] MEDS: FLUPHENAZINE HCL 10 MG TABLET NG SCH ×2 (08:07→20:16)
[2018-01-18] MEDS: QUETIAPINE FUMARATE 100MG TABLET PEG SCH ×2 (08:07→20:16)
[2018-01-18] MEDS: NICOTINE 14MG PATCH TD SCH (08:07)
[2018-01-18] MEDS: NYSTATIN POWDER 15GM TOP SCH ×2 (08:08→17:01)
[2018-01-18] MEDS ORDERED: LORAZEPAM 2MG/ML CPJ IV PRN ×2 (10:00→13:15)
[2018-01-18] MEDS: DEXTROSE 5% WATER 1,000 ML IV SCH (10:32)
[2018-01-18] MEDS: METOPROLOL TARTRATE 50MG TABLET PO SCH ×2 (10:34→20:16)
[2018-01-18] MEDS: INSULIN GLARGINE UD 100 UNITS/ML SYR SUBCUT SCH ×2 (10:35→22:00)
[2018-01-18 11:31] LABS: PLATELET ESTIMATE NORMAL
[2018-01-18] MEDS ORDERED: DOCUSATE SODIUM SUGAR FREE 100MG/10ML UDC GT PRN (12:00)
[2018-01-18] MEDS: MORPHINE SULFATE 4 MG/ML CPJ (NOT FOR IM USE) IV PRN ×3 (14:52→20:37)
[2018-01-18 15:51] LABS: BG CARBOXYHEMOGLOBIN 0.5 % (0.5-1.5); BG DEOXYHEMOGLOBIN 5.8 % (0.0-5.0); BG FRACTION INSPIRED OXYGEN 60; BG HCO3 ACT 26.9 mmol/L (22.0-26.0); BG METHEMOGLOBIN 0.5 % (0.0-1.5); BG OXYGEN SATURATION 94.1 % (92.0-98.5); BG OXYHEMOGLOBIN 93.2 % (94.0-97.0); BG PCO2 43.4 mmHg (35.0-45.0); BG PO2 73.4 mmHg (75.0-100.0); BG SAMPLE SITE LEFT RADIAL; BG TIDAL VOLUME(mL) 550 mL; BG TOTAL HEMOGLOBIN 7.9 g/dL (12.0-18.0); BG VENT MODE VENT - A/C; BG VENT RATE 24 set
[2018-01-18] MEDS ORDERED: VANCOMYCIN 1 G PREMIX 200 ML IV NR (18:00)
[2018-01-18] MEDS: ONDANSETRON HCL 4MG/2ML INJ IV PRN (20:36)
[2018-01-19] VITALS (16 sets, daily range): BP systolic 101–198; BP diastolic 56–115
[2018-01-19] MEDS: IPRATROPIUM/ALBUTEROL 0.5-3(2.5)MG/3ML NEB HHN SCH ×6 (00:45→20:40)
[2018-01-19] MEDS: LORAZEPAM 2MG/ML CPJ IV PRN ×4 (04:30→20:32)
[2018-01-19] MEDS: MORPHINE SULFATE 4 MG/ML CPJ (NOT FOR IM USE) IV PRN ×2 (05:33→15:00)
[2018-01-19] MEDS: DILTIAZEM HCL 60MG TABLET GT SCH ×3 (05:34→22:15)
[2018-01-19] MEDS: METOCLOPRAMIDE HCL 10MG/2ML VIAL IV SCH ×3 (05:42→22:00)
[2018-01-19] MEDS: BLOOD SUGAR DIAGNOSTIC STRIP TEST SCH ×4 (05:51→17:53)
[2018-01-19] MEDS: INSULIN LISPRO 100 UNITS/ML SUBCUT SCH ×5 (06:26→23:40)
[2018-01-19 07:49] LABS: HEMATOCRIT. 22.2 % (36.0-48.0); HEMOGLOBIN. 7.1 g/dL (12.0-16.0); MEAN CORPUSCULAR HEMOGLOBIN 28.1 pg (28.0-32.0); MEAN CORPUSCULAR VOLUME 87.6 fL (81.0-99.0); MEAN PLATELET VOLUME 10.6 fl (7.4-10.4); PLATELET 108 x1000/uL (130-400); RED BLOOD CELL COUNT 2.53 mill/uL (4.2-5.4); RED CELL DISTRIBUTION WIDTH 19.5 % (11.6-14.6)
[2018-01-19] MEDS ORDERED: CLONIDINE 0.1MG TABLET PO PRN (08:00)
[2018-01-19] MEDS: QUETIAPINE FUMARATE 100MG TABLET PEG SCH ×2 (08:11→20:32)
[2018-01-19] MEDS: TRIHEXYPHENIDYL HCL 5 MG TABLET NG SCH ×2 (08:12→20:33)
[2018-01-19] MEDS: NICOTINE 14MG PATCH TD SCH (08:12)
[2018-01-19] MEDS: PANTOPRAZOLE SODIUM 40 MG/VIAL IV SCH (08:12)
[2018-01-19] MEDS: FLUPHENAZINE HCL 10 MG TABLET NG SCH ×2 (08:14→20:33)
[2018-01-19 08:15] LABS: PHOSPHORUS 3.9 mg/dL (2.5-4.9)
[2018-01-19] MEDS: DEXTROSE 5% WATER 1,000 ML IV SCH (08:39)
[2018-01-19] MEDS: NYSTATIN POWDER 15GM TOP SCH ×2 (08:40→17:00)
[2018-01-19] MEDS: METOPROLOL TARTRATE 50MG TABLET PO SCH ×2 (08:44→20:33)
[2018-01-19] MEDS: INSULIN GLARGINE UD 100 UNITS/ML SYR SUBCUT SCH ×2 (10:00→22:16)
[2018-01-19 16:15] LABS: BG BASE EXCESS 1.4 mmol/L (-2.0-2.0); BG CARBOXYHEMOGLOBIN 0.6 % (0.5-1.5); BG DEOXYHEMOGLOBIN 0.9 % (0.0-5.0); BG FRACTION INSPIRED OXYGEN 100; BG HCO3 ACT 27.1 mmol/L (22.0-26.0); BG METHEMOGLOBIN 0.3 % (0.0-1.5); BG OXYGEN SATURATION 99.1 % (92.0-98.5); BG OXYHEMOGLOBIN 98.2 % (94.0-97.0); BG PCO2 48.9 mmHg (35.0-45.0); BG PH 7.361 (7.350-7.450); BG SAMPLE SITE LEFT RADIAL; BG TIDAL VOLUME(mL) 500 mL; BG TOTAL HEMOGLOBIN 7.8 g/dL (12.0-18.0); BG VENT MODE VENT - A/C; BG VENT RATE 24 set
[2018-01-19 16:30] LABS: PLATELET ESTIMATE DECREASED
[2018-01-19 17:43] LABS: TOTAL IRON BINDING CAPACITY 152 ug/dL (250-450)
[2018-01-19 18:04] LABS: FOLIC ACID (FOLATE) SERUM 7.2 ng/mL (>5.38)
[2018-01-19] MEDS: ONDANSETRON HCL 4MG/2ML INJ IV PRN (23:46)
[2018-01-19] MEDS: HYDROMORPHONE HCL/PF 2MG/ML CPJ IV PRN (23:47)
[2018-01-20] VITALS (16 sets, daily range): BP systolic 81–154; BP diastolic 45–90
[2018-01-20] MEDS: IPRATROPIUM/ALBUTEROL 0.5-3(2.5)MG/3ML NEB HHN SCH ×7 (00:27→23:49)
[2018-01-20] MEDS: METOCLOPRAMIDE HCL 10MG/2ML VIAL IV SCH ×3 (05:09→23:00)
[2018-01-20] MEDS: LORAZEPAM 2MG/ML CPJ IV PRN ×4 (05:09→20:36)
[2018-01-20] MEDS: DILTIAZEM HCL 60MG TABLET GT SCH ×3 (05:09→23:00)
[2018-01-20] MEDS: DEXTROSE 5% WATER 1,000 ML IV SCH (05:54)
[2018-01-20] MEDS: INSULIN LISPRO 100 UNITS/ML SUBCUT SCH ×4 (05:55→23:02)
[2018-01-20] MEDS: BLOOD SUGAR DIAGNOSTIC STRIP TEST SCH ×5 (05:56→23:02)
[2018-01-20] MEDS: HYDROMORPHONE HCL/PF 2MG/ML CPJ IV PRN ×3 (06:09→23:11)
[2018-01-20 07:16] LABS: CHLORIDE 109 mEq/L (98-107)
[2018-01-20 07:26] LABS: PHOSPHORUS 4.3 mg/dL (2.5-4.9)
[2018-01-20 08:16] LABS: BASOPHILS % 0.2 % (0.0-2.0); EOSINOPHILS % 3.6 % (0.0-5.0); LYMPHOCYTES % 12.7 % (20.0-50.0); MEAN CORPUSCULAR HEMOGLOBIN 28.8 pg (28.0-32.0); MEAN CORPUSCULAR VOLUME 88.3 fL (81.0-99.0); MEAN PLATELET VOLUME 11.2 fl (7.4-10.4); MONOCYTES % 2.3 % (2.0-8.0); NEUTROPHILS % 81.2 % (40.0-76.0); PLATELET 108 x1000/uL (130-400); RED BLOOD CELL COUNT 2.35 mill/uL (4.2-5.4); RED CELL DISTRIBUTION WIDTH 19.9 % (11.6-14.6)
[2018-01-20 08:29] LABS: HEMOGLOBIN. 6.8 g/dL (12.0-16.0)
[2018-01-20 08:30] LABS: HEMATOCRIT. 20.8 % (36.0-48.0)
[2018-01-20] MEDS: PANTOPRAZOLE SODIUM 40 MG/VIAL IV SCH (09:10)
[2018-01-20] MEDS: FLUPHENAZINE HCL 10 MG TABLET NG SCH ×2 (09:12→20:37)
[2018-01-20] MEDS: QUETIAPINE FUMARATE 100MG TABLET PEG SCH ×2 (09:12→20:36)
[2018-01-20] MEDS: TRIHEXYPHENIDYL HCL 5 MG TABLET NG SCH ×2 (09:12→20:37)
[2018-01-20] MEDS: FOLIC ACID 1MG TABLET PO SCH (09:12)
[2018-01-20] MEDS: METOPROLOL TARTRATE 50MG TABLET PO SCH ×2 (09:12→20:37)
[2018-01-20] MEDS: NICOTINE 14MG PATCH TD SCH (09:13)
[2018-01-20] MEDS: NYSTATIN POWDER 15GM TOP SCH ×2 (09:14→17:37)
[2018-01-20] MEDS: INSULIN GLARGINE UD 100 UNITS/ML SYR SUBCUT SCH ×2 (10:20→22:00)
[2018-01-20 15:53] LABS: BG BASE EXCESS 2.5 mmol/L (-2.0-2.0); BG CARBOXYHEMOGLOBIN 0.6 % (0.5-1.5); BG DEOXYHEMOGLOBIN 1.9 % (0.0-5.0); BG FRACTION INSPIRED OXYGEN 100; BG HCO3 ACT 30.5 mmol/L (22.0-26.0); BG METHEMOGLOBIN 0.2 % (0.0-1.5); BG OXYGEN SATURATION 98.1 % (92.0-98.5); BG OXYHEMOGLOBIN 97.3 % (94.0-97.0); BG PCO2 70.3 mmHg (35.0-45.0); BG PH 7.255 (7.350-7.450); BG PO2 130.7 mmHg (75.0-100.0); BG SAMPLE SITE RIGHT RADIAL; BG TIDAL VOLUME(mL) 500 mL; BG TOTAL HEMOGLOBIN 8.6 g/dL (12.0-18.0); BG VENT MODE VENT - A/C; BG VENT RATE 24 set
[2018-01-20] MEDS: ALBUTEROL (0.083%) 2.5MG/3ML NEB HHN PRN (18:13)
[2018-01-21] VITALS (14 sets, daily range): BP systolic 91–137; BP diastolic 49–84
[2018-01-21] MEDS: LORAZEPAM 2MG/ML CPJ IV PRN ×3 (03:49→21:09)
[2018-01-21] MEDS: IPRATROPIUM/ALBUTEROL 0.5-3(2.5)MG/3ML NEB HHN SCH ×3 (04:00→12:40)
[2018-01-21] MEDS: METOCLOPRAMIDE HCL 10MG/2ML VIAL IV SCH ×3 (05:10→23:01)
[2018-01-21] MEDS: DILTIAZEM HCL 60MG TABLET GT SCH ×3 (05:11→23:02)
[2018-01-21] MEDS: ALBUTEROL (0.083%) 2.5MG/3ML NEB HHN PRN (05:32)
[2018-01-21] MEDS: BLOOD SUGAR DIAGNOSTIC STRIP TEST SCH ×3 (06:00→17:31)
[2018-01-21] MEDS: INSULIN LISPRO 100 UNITS/ML SUBCUT SCH ×3 (06:00→17:31)
[2018-01-21] MEDS: HYDROMORPHONE HCL/PF 2MG/ML CPJ IV PRN ×3 (06:33→18:44)
[2018-01-21 06:47] LABS: BASOPHILS % 0.5 % (0.0-2.0); EOSINOPHILS % 3.3 % (0.0-5.0); HEMATOCRIT. 21.5 % (36.0-48.0); LYMPHOCYTES % 8.7 % (20.0-50.0); MEAN CORPUSCULAR HEMOGLOBIN 28.5 pg (28.0-32.0); MONOCYTES % 3.3 % (2.0-8.0); NEUTROPHILS % 84.2 % (40.0-76.0); RED BLOOD CELL COUNT 2.47 mill/uL (4.2-5.4); RED CELL DISTRIBUTION WIDTH 18.5 % (11.6-14.6)
[2018-01-21 09:07] LABS: PHOSPHORUS 4.5 mg/dL (2.5-4.9)
[2018-01-21] MEDS: FOLIC ACID 1MG TABLET PO SCH (09:16)
[2018-01-21] MEDS: QUETIAPINE FUMARATE 100MG TABLET PEG SCH ×2 (09:16→23:01)
[2018-01-21] MEDS: NICOTINE 14MG PATCH TD SCH (09:16)
[2018-01-21] MEDS: METOPROLOL TARTRATE 50MG TABLET PO SCH ×2 (09:16→23:02)
[2018-01-21] MEDS: PANTOPRAZOLE SODIUM 40 MG/VIAL IV SCH (09:16)
[2018-01-21] MEDS: FLUPHENAZINE HCL 10 MG TABLET NG SCH ×2 (09:17→23:01)
[2018-01-21] MEDS: TRIHEXYPHENIDYL HCL 5 MG TABLET NG SCH ×2 (09:17→21:00)
[2018-01-21] MEDS: NYSTATIN POWDER 15GM TOP SCH ×2 (09:18→18:33)
[2018-01-21] MEDS: INSULIN GLARGINE UD 100 UNITS/ML SYR SUBCUT SCH ×2 (10:24→22:00)
[2018-01-21 11:51] LABS: PLATELET 114 x1000/uL (130-400)
[2018-01-21] MEDS: DEXTROSE 5% WATER 1,000 ML IV SCH (12:25)
[2018-01-21 20:57] LABS: HEMATOCRIT 23.9 % (36.0-48.0); HEMOGLOBIN 7.9 g/dL (12.0-16.0)
[2018-01-22] VITALS (25 sets, daily range): BP systolic 89–175; BP diastolic 40–128
[2018-01-22] MEDS: LORAZEPAM 2MG/ML CPJ IV PRN ×5 (02:03→20:16)
[2018-01-22] MEDS: HYDROMORPHONE HCL/PF 2MG/ML CPJ IV PRN ×5 (02:59→20:23)
[2018-01-22] MEDS: BLOOD SUGAR DIAGNOSTIC STRIP TEST SCH ×4 (06:00→18:36)
[2018-01-22] MEDS: DILTIAZEM HCL 60MG TABLET GT SCH ×3 (06:02→22:00)
[2018-01-22] MEDS: METOCLOPRAMIDE HCL 10MG/2ML VIAL IV SCH ×3 (06:02→23:36)
[2018-01-22] MEDS: INSULIN LISPRO 100 UNITS/ML SUBCUT SCH ×4 (06:02→18:00)
[2018-01-22 07:19] LABS: BASOPHILS % 0.3 % (0.0-2.0); EOSINOPHILS % 2.9 % (0.0-5.0); HEMATOCRIT. 25.8 % (36.0-48.0); HEMOGLOBIN. 8.4 g/dL (12.0-16.0); LYMPHOCYTES % 7.4 % (20.0-50.0); MEAN CORPUSCULAR HEMOGLOBIN 28.9 pg (28.0-32.0); MEAN CORPUSCULAR VOLUME 88.3 fL (81.0-99.0); MEAN PLATELET VOLUME 10.6 fl (7.4-10.4); MONOCYTES % 5.5 % (2.0-8.0); NEUTROPHILS % 83.9 % (40.0-76.0); PLATELET 119 x1000/uL (130-400); RED BLOOD CELL COUNT 2.92 mill/uL (4.2-5.4)
[2018-01-22] MEDS: QUETIAPINE FUMARATE 100MG TABLET PEG SCH ×2 (08:37→21:00)
[2018-01-22] MEDS: FOLIC ACID 1MG TABLET PO SCH (08:37)
[2018-01-22] MEDS: NICOTINE 14MG PATCH TD SCH (08:38)
[2018-01-22] MEDS: FLUPHENAZINE HCL 10 MG TABLET NG SCH ×2 (08:38→21:00)
[2018-01-22] MEDS: PANTOPRAZOLE SODIUM 40 MG/VIAL IV SCH (08:38)
[2018-01-22] MEDS: METOPROLOL TARTRATE 50MG TABLET PO SCH ×3 (08:38→23:31)
[2018-01-22] MEDS: DEXTROSE 5% WATER 1,000 ML IV SCH (08:41)
[2018-01-22] MEDS: NYSTATIN POWDER 15GM TOP SCH ×2 (08:53→18:32)
[2018-01-22 09:15] LABS: CHLORIDE 110 mEq/L (98-107)
[2018-01-22 09:34] LABS: PHOSPHORUS 4.2 mg/dL (2.5-4.9)
[2018-01-22] MEDS: INSULIN GLARGINE UD 100 UNITS/ML SYR SUBCUT SCH (10:44)
[2018-01-22] MEDS: METHYLPREDNISOLONE SOD SUCC 40 MG/ML VIAL IV SCH ×2 (13:56→23:36)
[2018-01-22] MEDS ORDERED: IPRATROPIUM/ALBUTEROL 0.5-3(2.5)MG/3ML NEB HHN PRN (20:45)
[2018-01-22 20:52] LABS: BG BASE EXCESS -3.7 mmol/L (-2.0-2.0); BG CARBOXYHEMOGLOBIN 1.2 % (0.5-1.5); BG DEOXYHEMOGLOBIN 17.6 % (0.0-5.0); BG FRACTION INSPIRED OXYGEN 100; BG HCO3 ACT 24.1 mmol/L (22.0-26.0); BG METHEMOGLOBIN 0.3 % (0.0-1.5); BG OXYGEN SATURATION 82.1 % (92.0-98.5); BG OXYHEMOGLOBIN 80.9 % (94.0-97.0); BG PCO2 55.9 mmHg (35.0-45.0); BG PH 7.253 (7.350-7.450); BG SAMPLE SITE RIGHT RADIAL; BG TIDAL VOLUME(mL) 600 mL; BG VENT MODE VENT - A/C; BG VENT RATE 28 set
[2018-01-22] MEDS ORDERED: TRIHEXYPHENIDYL HCL 5 MG TABLET PO SCH (21:00)
[2018-01-22] MEDS: PROPOFOL 10MG/ML 100ML 100 ML IV PRN (21:04)
[2018-01-22] MEDS: IPRATROPIUM/ALBUTEROL 0.5-3(2.5)MG/3ML NEB HHN SCH (21:23)
[2018-01-22] MEDS ORDERED: NOREPINEPHRINE 4 MG in DEXT 5% WATER 246 ML IV PRN (21:30)
[2018-01-22] MEDS ORDERED: MIDAZOLAM HCL 50 MG in DEXTROSE 5% WATER 40 ML IV PRN (21:30)
[2018-01-22] MEDS ORDERED: INSULIN GLARGINE UD 100 UNITS/ML SYR SUBCUT SCH (22:00)
[2018-01-22] MEDS ORDERED: SODIUM BICARBONATE 8.4% 1 MEQ/ML 50ML SYR IV NR (23:30)
[2018-01-22] MEDS ORDERED: MIDAZOLAM HCL 100 MG in DEXT 5% WATER 80 ML IV PRN (23:45)
[2018-01-22] MEDS ORDERED: NOREPINEPHRINE 32 MG in DEXT 5% WATER 468 ML IV PRN (23:45)
[2018-01-23] VITALS (44 sets, daily range): BP systolic 37–132; BP diastolic 19–63
[2018-01-23] MEDS: INSULIN LISPRO 100 UNITS/ML SUBCUT SCH
[2018-01-23] MEDS: IPRATROPIUM/ALBUTEROL 0.5-3(2.5)MG/3ML NEB HHN SCH ×2 (00:12→04:20)
[2018-01-23] MEDS: PROPOFOL 10MG/ML 100ML 100 ML IV PRN ×2 (00:30→04:16)
[2018-01-23] MEDS: BLOOD SUGAR DIAGNOSTIC STRIP TEST SCH (00:36)
[2018-01-23] MEDS: DEXTROSE 5% WATER 1,000 ML IV SCH (01:56)
[2018-01-23] MEDS ORDERED: PHENYLEPHRINE 80 MG in DEXT 5% WATER 492 ML IV PRN (04:15)
[2018-01-23] MEDS ORDERED: VASOPRESSIN 10 UNIT in SODIUM CHLORIDE 0.9% 99.5 ML IV PRN (05:00)
[2018-01-23] MEDS ORDERED: SODIUM BICARBONATE 7.5% 0.9 MEQ/ML 50ML SYR IV ONE (15:09)
[2018-01-23] MEDS ORDERED: CALCIUM CHLORIDE 1GM/10ML SYR IV ONE (15:09)
[2018-01-23] MEDS ORDERED: EPINEPHRINE 0.1MG/ML (1:10,000) 10ML SYR ONE (15:09)
== END 2018-01-23 10:00 | disposition expired | DRG 4 ==
LOC: ER 20:23 → CVICU 12-24 00:02 → EDBEDREQSVC 12-24 00:07 → EDBEDREQTM 12-24 00:07 → EDBEDREQ 12-24 00:07 → ENRESERV 12-24 06:56 → 5EST 01-07 17:57 → CVICU 01-22 22:49
PROVIDERS: ADMIT Internal Medicine; ATTEND Internal Medicine
PROC: 0BD48ZX Extraction of Right Upper Lobe Bronchus, Via Natural or Artificial Opening Endoscopic, Diagnostic (ICD-10-PCS; 2017-12-27)
PROC: 5A1955Z Respiratory Ventilation, Greater than 96 Consecutive Hours (ICD-10-PCS; 2017-12-27)
PROC: 0B9D8ZX Drainage of Right Middle Lung Lobe, Via Natural or Artificial Opening Endoscopic, Diagnostic (ICD-10-PCS; 2017-12-27)
PROC: 0BD58ZX Extraction of Right Middle Lobe Bronchus, Via Natural or Artificial Opening Endoscopic, Diagnostic (ICD-10-PCS; principal; 2017-12-27 13:00)
PROC: 0DH63UZ Insertion of Feeding Device into Stomach, Percutaneous Approach (ICD-10-PCS; 2018-01-02)
PROC: 0B113F4 Bypass Trachea to Cutaneous with Tracheostomy Device, Percutaneous Approach (ICD-10-PCS; 2018-01-06)
PROC: 0GBJ0ZZ Excision of Thyroid Gland Isthmus, Open Approach (ICD-10-PCS; 2018-01-06)
PROC: 06H03DZ Insertion of Intraluminal Device into Inferior Vena Cava, Percutaneous Approach (ICD-10-PCS; 2018-01-06)
DX: A41.9 Sepsis, unspecified organism (principal); E11.00 Type 2 diabetes mellitus with hyperosmolarity without nonketotic hyperglycemic-hyperosmolar coma (NKHHC); E43 Unspecified severe protein-calorie malnutrition; N17.0 Acute kidney failure with tubular necrosis; R65.21 Severe sepsis with septic shock; J18.9 Pneumonia, unspecified organism; E11.22 Type 2 diabetes mellitus with diabetic chronic kidney disease; J96.01 Acute respiratory failure with hypoxia; I50.9 Heart failure, unspecified; J44.0 Chronic obstructive pulmonary disease with (acute) lower respiratory infection; N18.3 Chronic kidney disease, stage 3 (moderate); I13.0 Hypertensive heart and chronic kidney disease with heart failure and stage 1 through stage 4 chronic kidney disease, or unspecified chronic kidney disease
CPT/HCPCS: 31500; 36415; 36569; 36600; 37191; 71045; 71250; 74018; 74176; 76937; 78580; 80048; 80053; 80061; 80202; 80305; 81003; 82010; 82270; 82375; 82533; 82550; 82553; 82607; 82728; 82746; 82805; 82962; 83036; 83540; 83550; 83605; 83690; 83735; 83880; 84100; 84134; 84145; 84439; 84443; 84478; 84481; 84484; 84681; 85014; 85018; 85025; 85027; 85379; 85610; 85730; 86022; 86480; 86635; 86850; 86900; 86920; 87040; 87070; 87086; 87102; 87106; 87186; 87389; 88104; 88108; 88305; 88312; 93005; 93306; 93970; 94002; 94003; 94640; 94660; 96374; 96375; 99291; C1725; C1769; C1880; C9113; J0360; J0690; J0692; J1170; J1450; J1630; J1644; J1720; J1815; J2060; J2250; J2270; J2370; J2405; J2543; J2704; J2765; J2920; J2930; J3010; J3370; J3475; J3480; J3490; J7030; J7040; J7050; J7060; J7070; J7608; J7611; J7620; J7626; P9016; P9047; Q9967; A4315